=== PATIENT | male | born 1975 | race Two or more races ===

== ENCOUNTER 2020-08-21 02:05 | Inpatient (IN) | payer OTHER ==
[~2020-08-21] VITALS: Ht 175.3 cm; Wt 69.5 kg
--- NOTE | 2020-08-21 02:40 | NUR ---
assumed care of pt. pt here for open wounds to R 2nd 3rd 4th toes. pt states that he has had open wounds to his toes for a few days. middle toe is black and has skin sloughing off of it. foul smelling. pt has some bloody areas to 2nd and 4th toes. no drainage at this time. pt also has discoloration to base of toes. 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 pt has multiple scrapes and scabs to the anterior of both lower legs. pt is calm and cooperative. positioning for comfort. at bedside
[2020-08-21 03:00] LABS: BASOPHILS # (AUTO) 0.03 x10^3/uL (0-0.1); BASOPHILS % (AUTO) 0 % (0-1); EOSINOPHILS % (AUTO) 1 % (1-7); LYMPHOCYTES # (AUTO) 1.22 x10^3/uL (1-3.4); LYMPHOCYTES % (AUTO) 9 % (22-44); MD NO; MEAN CORPUSCULAR HEMOGLOBIN 30.9 pg (27.5-34.5); MEAN CORPUSCULAR HGB CONC 33.3 g/dL (33.2-36.2); MEAN PLATELET VOLUME 7.4 fL (7.4-10.4); MONOCYTES # (AUTO) 0.57 x10^3/uL (0.2-0.8); MONOCYTES % (AUTO) 4 % (2-9); NEUTROPHILS # (AUTO) 11.11 x10^3/uL (1.8-6.8); NEUTROPHILS % (AUTO) 85 % (42-75); PLATELET COUNT 520 x10^3/uL (130-400); RED BLOOD COUNT 3.27 x10^6/uL (4.38-5.82); RED CELL DISTRIBUTION WIDTH 13.1 % (9.4-14.8)
[2020-08-21] MEDS ORDERED: VANCOMYCIN 1,500 MG in SODIUM CHLORIDE 0.9% 250 ML IV ONE (03:00)
[2020-08-21] MEDS ORDERED: LEVOFLOXACIN/PMX 750MG/150ML 150 ML IVPB ONE (03:00)
[2020-08-21] MEDS ORDERED: AMPICILLIN/SULBACTAM 3 GM in SODIUM CHLORIDE 0.9% 100 ML IV ONE (03:00)
[2020-08-21] MEDS ORDERED: ACETAMINOPHEN 325 MG TABLET PO ONE (03:00)
[2020-08-21] MEDS ORDERED: VANCOMYCIN PER PHARMACY MC ONE (03:00)
[2020-08-21] MEDS ORDERED: SODIUM CHLORIDE FLUSH 10ML SYR IVF ONE (03:00)
[2020-08-21] MEDS ORDERED: SODIUM CHLORIDE 0.9% 1,000ML IVBOLUS ONE ×2 (03:00→05:30)
--- NOTE | 2020-08-21 03:00 | NUR ---
wound has been sprayed with wound cleanser. elevated for comfort
[2020-08-21 03:01] LABS: HCT (SEDRATE) 30.6 % (39.2-51.8)
[2020-08-21 03:08] LABS: ALANINE AMINOTRANSFERASE 19 U/L (12-78); ALBUMIN 2.4 g/dL (3.4-5.0); ANION GAP 6 mmol/L (5-15); CALCIUM 9.1 mg/dL (8.5-10.1); CHLORIDE 95 mmol/L (98-107)
[2020-08-21] MEDS ORDERED: ACETAMINOPHEN 325 MG TABLET ONE (03:09)
[2020-08-21] MEDS ORDERED: MORPHINE SULFATE 4 MG/ML, 1ML ONE (03:09)
[2020-08-21 03:15] LABS: ALKALINE PHOSPHATASE 222 U/L (45-117); BILIRUBIN,TOTAL 0.3 mg/dL (0.2-1.0); CREATININE 1.16 mg/dL (0.7-1.3); TOTAL PROTEIN 8.2 g/dL (6.4-8.2)
[2020-08-21] MEDS: MORPHINE SULFATE 4 MG/ML, 1ML IV PRN ×2 (03:15→08:25)
[2020-08-21] MEDS ORDERED: METF500T17 PO (03:46)
[2020-08-21] MEDS ORDERED: ATOR20TA37 PO (03:46)
[2020-08-21] MEDS ORDERED: CLINDAMYCIN PMX 900MG/50ML 50 ML IV ONE (04:00)
--- NOTE | 2020-08-21 04:03 | NUR ---
pt has been medicated and reports some relief of pain. ABX infusing. pt sitting up on gurney in position of comfort. awaiting admit. at bedside
[2020-08-21] MEDS ORDERED: CLINDAMYCIN PMX 900MG/50ML 50 ML ONE (05:09)
--- NOTE | 2020-08-21 05:21 | NUR ---
admit orders recieved. bed assignment recieved. pt updated on POC report called to Yung EUGENE
--- NOTE | 2020-08-21 05:29 | NUR ---
pt has been NPO since admit
[2020-08-21 07:05] VITALS: BP 109/70
[2020-08-21] MEDS ORDERED: ONDANSETRON ODT 4 MG PO PRN (08:30)
[2020-08-21] MEDS ORDERED: VANCOMYCIN PER PHARMACY MC PRN (08:30)
[2020-08-21] MEDS ORDERED: ONDANSETRON 2MG/ML, 2ML IVPush PRN ×2 (08:30→18:00)
[2020-08-21] MEDS ORDERED: morphine SULFATE 10 MG/ML, 1ML IVPush PRN (08:30)
[2020-08-21] MEDS: SODIUM CHLORIDE 0.9% 1,000 ML IV SCH ×2 (08:53→16:16)
[2020-08-21] MEDS: PIPERACILLIN/TAZO/PMX 3.375GM 50 ML IV SCH ×2 (08:53→15:09)
[2020-08-21] MEDS ORDERED: CLINDAMYCIN PMX 900MG/50ML 50 ML IV SCH ×2 (09:00→13:00)
[2020-08-21] MEDS ORDERED: PHARMACOKINETIC CONSULTATION MC ONE (09:00)
[2020-08-21] MEDS ORDERED: PHARMACOKINETIC MONITORING MC PRN (09:00)
[2020-08-21] MEDS ORDERED: VANCOMYCIN 1,800 MG in SODIUM CHLORIDE 0.9% 250 ML IV ONE (10:00)
[2020-08-21] MEDS: INSULIN LISPRO 100 UNITS/ML, PEN SQ-INSULIN SCH ×3 (11:38→22:30)
[2020-08-21 13:25] VITALS: BP 97/63
[2020-08-21 13:28] VITALS: BP 139/76
[2020-08-21] MEDS: VANCOMYCIN 1,500 MG in SODIUM CHLORIDE 0.9% 250 ML IV SCH (15:13)
[2020-08-21] MEDS ORDERED: CHLORHEXIDINE 15 ML UDC ONE (16:52)
[2020-08-21] MEDS ORDERED: CHLORHEXIDINE 15 ML UDC MM ONE (17:00)
[2020-08-21] MEDS ORDERED: MIDAZOLAM 1 MG/ML, 2ML ONE (17:24)
[2020-08-21] MEDS ORDERED: FENTANYL PF 100 MCG/2ML ONE (17:24)
[2020-08-21] MEDS ORDERED: PROPOFOL 10 MG/ML, 20ML ONE (17:29)
[2020-08-21] MEDS ORDERED: HYDROmorphone 1 MG/ML, 1ML INJ IVPush PRN (18:00)
[2020-08-21] MEDS ORDERED: OXYcodone 5 MG/5 ML ORAL.SOL UDC PO PRN (18:00)
[2020-08-21] MEDS ORDERED: PROMETHAZINE 25 MG/ML, 1ML IVPush PRN (18:00)
[2020-08-21] MEDS ORDERED: HYDROcodone/APAP 7.5-325MG/15ML UDC PO PRN ×2 (18:00→19:30)
[2020-08-21] MEDS ORDERED: MEPERIDINE/PF 25MG/0.5ML IVPush PRN (18:00)
[2020-08-21] MEDS ORDERED: FENTANYL PF 100 MCG/2ML IV PRN (18:00)
[2020-08-21 18:34] VITALS: BP 147/83
[2020-08-21 18:40] VITALS: BP 120/70
[2020-08-21] MEDS ORDERED: ONDANSETRON 2MG/ML, 2ML IV PRN (19:30)
[2020-08-21] MEDS: KETOROLAC 30 MG/1 ML IV SCH (20:17)
[2020-08-21] MEDS: HYDROmorphone 2 MG/ML, 1ML IVPush PRN (20:44)
[2020-08-21] MEDS: AMPICILLIN/SULBACTAM 3 GM in SODIUM CHLORIDE 0.9% 100 ML IV SCH (20:44)
[2020-08-21] MEDS: DOCUSATE 100 MG CAPSULE PO SCH (22:32)
[2020-08-21] MEDS: OXYcodone/APAP 5/325MG TABLET PO PRN (23:49)
[2020-08-22 00:27] VITALS: BP 132/55
[2020-08-22] MEDS: AMPICILLIN/SULBACTAM 3 GM in SODIUM CHLORIDE 0.9% 100 ML IV SCH ×4 (02:10→19:34)
[2020-08-22] MEDS: KETOROLAC 30 MG/1 ML IV SCH ×2 (03:36→12:00)
[2020-08-22] MEDS: VANCOMYCIN 1,500 MG in SODIUM CHLORIDE 0.9% 250 ML IV SCH ×2 (03:37→17:44)
[2020-08-22] MEDS ORDERED: VANCOMYCIN 1,800 MG in SODIUM CHLORIDE 0.9% 250 ML IV SCH (04:00)
[2020-08-22 04:11] VITALS: BP 122/68
[2020-08-22 04:32] LABS: MEAN CORPUSCULAR HEMOGLOBIN 31.3 pg (27.5-34.5); MEAN CORPUSCULAR HGB CONC 33.7 g/dL (33.2-36.2); MEAN PLATELET VOLUME 7.3 fL (7.4-10.4); PLATELET COUNT 472 x10^3/uL (130-400); RED BLOOD COUNT 2.94 x10^6/uL (4.38-5.82); RED CELL DISTRIBUTION WIDTH 13.3 % (9.4-14.8)
[2020-08-22 04:41] LABS: ALANINE AMINOTRANSFERASE 14 U/L (12-78); ANION GAP 6 mmol/L (5-15); CALCIUM 8.4 mg/dL (8.5-10.1); CHLORIDE 100 mmol/L (98-107); CREATININE 0.93 mg/dL (0.7-1.3)
[2020-08-22 04:51] LABS: ALKALINE PHOSPHATASE 171 U/L (45-117); BILIRUBIN,TOTAL 0.4 mg/dL (0.2-1.0); TOTAL PROTEIN 7.1 g/dL (6.4-8.2)
[2020-08-22 05:50] LABS: BASOPHILS # (AUTO) 0.01 x10^3/uL (0-0.1); BASOPHILS % (AUTO) 0 % (0-1); EOSINOPHILS # (AUTO) 0.06 x10^3/uL (0-0.4); EOSINOPHILS % (AUTO) 0 % (1-7); LYMPHOCYTES # (AUTO) 1.36 x10^3/uL (1-3.4); LYMPHOCYTES % (AUTO) 9 % (22-44); MD SCAN; MONOCYTES # (AUTO) 0.88 x10^3/uL (0.2-0.8); MONOCYTES % (AUTO) 6 % (2-9); NEUTROPHILS # (AUTO) 13.43 x10^3/uL (1.8-6.8); NEUTROPHILS % (AUTO) 85 % (42-75)
[2020-08-22] MEDS: INSULIN LISPRO 100 UNITS/ML, PEN SQ-INSULIN SCH ×4 (07:00→20:46)
[2020-08-22 09:32] VITALS: BP 136/71
[2020-08-22] MEDS: DOCUSATE 100 MG CAPSULE PO SCH ×2 (10:15→20:45)
[2020-08-22] MEDS: OXYcodone/APAP 5/325MG TABLET PO PRN ×2 (10:28→16:31)
[2020-08-22] MEDS: CLINDAMYCIN PMX 900MG/50ML 50 ML IV SCH ×2 (12:48→20:34)
[2020-08-22] MEDS ORDERED: VANCOMYCIN PER PHARMACY MC PRN (13:00)
[2020-08-22] MEDS ORDERED: PHARMACOKINETIC CONSULTATION MC ONE (13:30)
[2020-08-22] MEDS ORDERED: PHARMACOKINETIC MONITORING MC PRN (13:30)
[2020-08-22 14:00] VITALS: BP 103/65
[2020-08-22] MEDS ORDERED: VANCOMYCIN 1,500 MG in SODIUM CHLORIDE 0.9% 250 ML IV SCH (15:30)
[2020-08-22 19:11] VITALS: BP 104/63
[2020-08-23 01:05] VITALS: BP 127/70
[2020-08-23] MEDS: AMPICILLIN/SULBACTAM 3 GM in SODIUM CHLORIDE 0.9% 100 ML IV SCH ×2 (01:11→08:03)
[2020-08-23] MEDS: OXYcodone/APAP 5/325MG TABLET PO PRN ×4 (01:11→21:32)
[2020-08-23] MEDS: CLINDAMYCIN PMX 900MG/50ML 50 ML IV SCH ×2 (04:13→11:28)
[2020-08-23] MEDS: VANCOMYCIN 1,500 MG in SODIUM CHLORIDE 0.9% 250 ML IV SCH (05:23)
[2020-08-23 05:35] LABS: ANION GAP 8 mmol/L (5-15); CALCIUM 8.8 mg/dL (8.5-10.1); CHLORIDE 102 mmol/L (98-107)
[2020-08-23 05:36] LABS: BASOPHILS # (AUTO) 0.01 x10^3/uL (0-0.1); BASOPHILS % (AUTO) 0 % (0-1); CREATININE 0.84 mg/dL (0.7-1.3); EOSINOPHILS # (AUTO) 0.12 x10^3/uL (0-0.4); EOSINOPHILS % (AUTO) 1 % (1-7); LYMPHOCYTES # (AUTO) 1.26 x10^3/uL (1-3.4); LYMPHOCYTES % (AUTO) 11 % (22-44); MD NO; MEAN CORPUSCULAR HEMOGLOBIN 30.5 pg (27.5-34.5); MEAN CORPUSCULAR HGB CONC 32.7 g/dL (33.2-36.2); MONOCYTES # (AUTO) 0.62 x10^3/uL (0.2-0.8); MONOCYTES % (AUTO) 6 % (2-9); NEUTROPHILS # (AUTO) 9.16 x10^3/uL (1.8-6.8); NEUTROPHILS % (AUTO) 82 % (42-75); PLATELET COUNT 455 x10^3/uL (130-400); RED BLOOD COUNT 2.78 x10^6/uL (4.38-5.82); RED CELL DISTRIBUTION WIDTH 13.3 % (9.4-14.8)
[2020-08-23] MEDS: INSULIN LISPRO 100 UNITS/ML, PEN SQ-INSULIN SCH ×4 (07:00→21:48)
[2020-08-23 08:17] LABS: HCT (SEDRATE) 25.9 % (39.2-51.8)
[2020-08-23 08:19] VITALS: BP 140/74
[2020-08-23] MEDS: DOCUSATE 100 MG CAPSULE PO SCH ×2 (08:22→21:32)
[2020-08-23 08:36] LABS: % IRON SATURATION 12 % (20-55); IRON LEVEL 18 mcg/dL (65-175); TOTAL IRON BINDING CAPACITY 146 mcg/dL (250-450); TRANSFERRIN 108 mg/dL (200-360)
[2020-08-23 08:54] LABS: C-REACTIVE PROTEIN, QUANT > 19.00 mg/dL (0.02-0.49)
[2020-08-23] MEDS: ENOXAPARIN 40 MG/0.4 ML SQ SCH (11:29)
[2020-08-23] MEDS ORDERED: ERTAPENEM 1 GM in SODIUM CHLORIDE 0.9% 50 ML IV SCH (13:00)
[2020-08-23] MEDS: LINEZOLID 600 MG TABLET PO SCH (13:26)
[2020-08-23 13:38] VITALS: BP 139/82
[2020-08-23] MEDS ORDERED: VANCOMYCIN 1,200 MG in SODIUM CHLORIDE 0.9% 250 ML IV SCH (17:00)
[2020-08-23 18:33] VITALS: BP 145/72
[2020-08-24 01:28] VITALS: BP 120/69
[2020-08-24] MEDS: LINEZOLID 600 MG TABLET PO SCH (01:37)
[2020-08-24] MEDS: OXYcodone/APAP 5/325MG TABLET PO PRN ×4 (01:38→20:19)
[2020-08-24 05:17] LABS: BASOPHILS # (AUTO) 0.03 x10^3/uL (0-0.1); BASOPHILS % (AUTO) 0 % (0-1); EOSINOPHILS # (AUTO) 0.16 x10^3/uL (0-0.4); EOSINOPHILS % (AUTO) 2 % (1-7); LYMPHOCYTES # (AUTO) 1.35 x10^3/uL (1-3.4); LYMPHOCYTES % (AUTO) 13 % (22-44); MD NO; MEAN CORPUSCULAR HEMOGLOBIN 31.2 pg (27.5-34.5); MEAN CORPUSCULAR HGB CONC 33.6 g/dL (33.2-36.2); MEAN PLATELET VOLUME 7.4 fL (7.4-10.4); MONOCYTES # (AUTO) 0.74 x10^3/uL (0.2-0.8); MONOCYTES % (AUTO) 7 % (2-9); NEUTROPHILS # (AUTO) 8.32 x10^3/uL (1.8-6.8); NEUTROPHILS % (AUTO) 79 % (42-75); PLATELET COUNT 478 x10^3/uL (130-400); RED BLOOD COUNT 2.74 x10^6/uL (4.38-5.82); RED CELL DISTRIBUTION WIDTH 13.3 % (9.4-14.8)
[2020-08-24] MEDS: INSULIN LISPRO 100 UNITS/ML, PEN SQ-INSULIN SCH ×4 (06:56→20:38)
[2020-08-24 07:16] VITALS: BP 147/87
[2020-08-24] MEDS: DOCUSATE 100 MG CAPSULE PO SCH ×2 (08:20→20:17)
[2020-08-24] MEDS: PIPERACILLIN/TAZO/PMX 3.375GM 50 ML IV SCH ×3 (10:53→23:26)
[2020-08-24] MEDS: DAPTOMYCIN 400 MG in SODIUM CHLORIDE 0.9% 100 ML IVPB SCH (11:33)
[2020-08-24] MEDS: ENOXAPARIN 40 MG/0.4 ML SQ SCH (11:40)
[2020-08-24 12:30] VITALS: BP 156/93
[2020-08-24 19:08] VITALS: BP 116/78
[2020-08-25] MEDS: OXYcodone/APAP 5/325MG TABLET PO PRN ×4 (00:31→20:40)
[2020-08-25 00:46] VITALS: BP 106/47
[2020-08-25 04:27] LABS: BASOPHILS # (AUTO) 0.02 x10^3/uL (0-0.1); BASOPHILS % (AUTO) 0 % (0-1); EOSINOPHILS # (AUTO) 0.25 x10^3/uL (0-0.4); EOSINOPHILS % (AUTO) 2 % (1-7); LYMPHOCYTES # (AUTO) 1.54 x10^3/uL (1-3.4); LYMPHOCYTES % (AUTO) 13 % (22-44); MD NO; MEAN CORPUSCULAR HEMOGLOBIN 30.8 pg (27.5-34.5); MEAN CORPUSCULAR HGB CONC 33.1 g/dL (33.2-36.2); MEAN PLATELET VOLUME 7.1 fL (7.4-10.4); MONOCYTES # (AUTO) 0.68 x10^3/uL (0.2-0.8); MONOCYTES % (AUTO) 6 % (2-9); NEUTROPHILS # (AUTO) 9.03 x10^3/uL (1.8-6.8); NEUTROPHILS % (AUTO) 78 % (42-75); PLATELET COUNT 513 x10^3/uL (130-400); RED BLOOD COUNT 3.12 x10^6/uL (4.38-5.82); RED CELL DISTRIBUTION WIDTH 13.2 % (9.4-14.8)
[2020-08-25 04:35] LABS: ANION GAP 5 mmol/L (5-15); CALCIUM 8.8 mg/dL (8.5-10.1); CHLORIDE 97 mmol/L (98-107); CREATININE 0.99 mg/dL (0.7-1.3)
[2020-08-25] MEDS: PIPERACILLIN/TAZO/PMX 3.375GM 50 ML IV SCH ×3 (06:05→18:15)
[2020-08-25] MEDS: INSULIN LISPRO 100 UNITS/ML, PEN SQ-INSULIN SCH ×4 (06:14→20:41)
[2020-08-25 06:50] VITALS: BP 103/61
[2020-08-25] MEDS: DOCUSATE 100 MG CAPSULE PO SCH ×2 (08:25→20:40)
[2020-08-25] MEDS: DAPTOMYCIN 400 MG in SODIUM CHLORIDE 0.9% 100 ML IVPB SCH (10:43)
[2020-08-25] MEDS ORDERED: GADOTERATE 7.5 MMOL/15 ML SYR ONE (11:59)
[2020-08-25] MEDS: ENOXAPARIN 40 MG/0.4 ML SQ SCH (12:32)
[2020-08-25 13:07] VITALS: BP 129/73
[2020-08-25 20:20] VITALS: BP 117/70
[2020-08-26 00:15] VITALS: BP 91/57
[2020-08-26] MEDS: PIPERACILLIN/TAZO/PMX 3.375GM 50 ML IV SCH ×2 (01:38→06:38)
[2020-08-26 05:21] LABS: BASOPHILS # (AUTO) 0.05 x10^3/uL (0-0.1); BASOPHILS % (AUTO) 0 % (0-1); EOSINOPHILS # (AUTO) 0.21 x10^3/uL (0-0.4); EOSINOPHILS % (AUTO) 2 % (1-7); LYMPHOCYTES # (AUTO) 1.35 x10^3/uL (1-3.4); LYMPHOCYTES % (AUTO) 10 % (22-44); MD NO; MEAN CORPUSCULAR HEMOGLOBIN 30.2 pg (27.5-34.5); MEAN CORPUSCULAR HGB CONC 32.5 g/dL (33.2-36.2); MONOCYTES # (AUTO) 0.62 x10^3/uL (0.2-0.8); MONOCYTES % (AUTO) 5 % (2-9); NEUTROPHILS # (AUTO) 10.75 x10^3/uL (1.8-6.8); NEUTROPHILS % (AUTO) 83 % (42-75); PLATELET COUNT 628 x10^3/uL (130-400); RED BLOOD COUNT 3.38 x10^6/uL (4.38-5.82); RED CELL DISTRIBUTION WIDTH 13.2 % (9.4-14.8)
[2020-08-26 05:23] LABS: ANION GAP 5 mmol/L (5-15); CHLORIDE 96 mmol/L (98-107)
[2020-08-26 05:28] LABS: ALANINE AMINOTRANSFERASE 37 U/L (12-78); ALKALINE PHOSPHATASE 359 U/L (45-117); BILIRUBIN,TOTAL 0.4 mg/dL (0.2-1.0); CALCIUM 9.1 mg/dL (8.5-10.1); CREATININE 0.92 mg/dL (0.7-1.3); TOTAL PROTEIN 8.1 g/dL (6.4-8.2)
[2020-08-26] MEDS: INSULIN LISPRO 100 UNITS/ML, PEN SQ-INSULIN SCH ×4 (06:09→20:48)
[2020-08-26 06:58] VITALS: BP 113/69
[2020-08-26] MEDS: OXYcodone/APAP 5/325MG TABLET PO PRN ×2 (09:37→20:25)
[2020-08-26] MEDS: GABAPENTIN 300 MG CAPSULE PO SCH ×3 (09:37→20:24)
[2020-08-26] MEDS ORDERED: BISACODYL 10 MG SUPP PR SCH (10:00)
[2020-08-26] MEDS: HYDROmorphone 2 MG/ML, 1ML IVPush PRN (10:19)
[2020-08-26] MEDS ORDERED: VANCOMYCIN PER PHARMACY MC PRN (11:00)
[2020-08-26] MEDS ORDERED: PHARMACOKINETIC MONITORING MC PRN (11:00)
[2020-08-26] MEDS ORDERED: PHARMACOKINETIC CONSULTATION MC ONE (11:00)
[2020-08-26] MEDS ORDERED: VANCOMYCIN 1,600 MG in SODIUM CHLORIDE 0.9% 250 ML IV ONE (11:30)
[2020-08-26] MEDS: CEFEPIME 2 GM in DEXTROSE 5% 100 ML IV SCH ×2 (12:09→20:24)
[2020-08-26 12:19] VITALS: BP 90/56
[2020-08-26] MEDS: ENOXAPARIN 40 MG/0.4 ML SQ SCH (13:36)
[2020-08-26] MEDS: FERROUS SULFATE 325 MG TABLET PO SCH (16:14)
[2020-08-26] MEDS: SODIUM CHLORIDE 0.9% 1,000 ML IV SCH (16:21)
[2020-08-26 19:12] VITALS: BP 111/65
[2020-08-26] MEDS: SENNA/DOCUSATE TABLET PO SCH (20:24)
[2020-08-26] MEDS: VANCOMYCIN 1,200 MG in SODIUM CHLORIDE 0.9% 250 ML IV SCH (23:36)
[2020-08-27 00:41] VITALS: BP 100/57
[2020-08-27] MEDS: SODIUM CHLORIDE 0.9% 1,000 ML IV SCH ×2 (03:23→23:47)
[2020-08-27] MEDS: CEFEPIME 2 GM in DEXTROSE 5% 100 ML IV SCH ×3 (03:59→22:21)
[2020-08-27] MEDS: HYDROmorphone 2 MG/ML, 1ML IVPush PRN ×3 (04:20→15:11)
[2020-08-27 06:20] LABS: ANION GAP 5 mmol/L (5-15); CHLORIDE 100 mmol/L (98-107)
[2020-08-27 06:28] LABS: CREATININE 0.85 mg/dL (0.7-1.3)
[2020-08-27 06:57] VITALS: BP 103/69
[2020-08-27] MEDS: INSULIN LISPRO 100 UNITS/ML, PEN SQ-INSULIN SCH ×4 (07:38→20:09)
[2020-08-27] MEDS: GABAPENTIN 300 MG CAPSULE PO SCH ×3 (07:51→20:10)
[2020-08-27] MEDS ORDERED: BISACODYL 10 MG SUPP PR PRN (08:00)
[2020-08-27] MEDS ORDERED: ACETAMINOPHEN 325 MG TABLET PO PRN ×2 (08:00→20:30)
[2020-08-27 08:28] LABS: BASOPHILS % (AUTO) 0 % (0-1); EOSINOPHILS % (AUTO) 2 % (1-7); LYMPHOCYTES % (AUTO) 13 % (22-44); MEAN CORPUSCULAR HEMOGLOBIN 30.6 pg (27.5-34.5); MEAN CORPUSCULAR HGB CONC 33.7 g/dL (33.2-36.2); MEAN PLATELET VOLUME 6.9 fL (7.4-10.4); MONOCYTES % (AUTO) 6 % (2-9); NEUTROPHILS % (AUTO) 79 % (42-75); PLATELET COUNT 604 x10^3/uL (130-400); RED BLOOD COUNT 3.07 x10^6/uL (4.38-5.82); RED CELL DISTRIBUTION WIDTH 13.1 % (9.4-14.8)
[2020-08-27 08:53] LABS: MD NO
[2020-08-27] MEDS: VANCOMYCIN 1,200 MG in SODIUM CHLORIDE 0.9% 250 ML IV SCH (11:36)
[2020-08-27] MEDS: ENOXAPARIN 40 MG/0.4 ML SQ SCH (11:37)
[2020-08-27 12:31] VITALS: BP 118/70
[2020-08-27 18:28] VITALS: BP 103/60
[2020-08-27] MEDS: SENNA/DOCUSATE TABLET PO SCH (20:10)
[2020-08-27] MEDS ORDERED: ONDANSETRON 2MG/ML, 2ML ONE (20:25)
[2020-08-27] MEDS ORDERED: PROPOFOL 10 MG/ML, 20ML ONE (20:25)
[2020-08-27] MEDS ORDERED: ONDANSETRON 2MG/ML, 2ML IVPush PRN (20:30)
[2020-08-27] MEDS ORDERED: OXYcodone 5 MG/5 ML ORAL.SOL UDC PO PRN (20:30)
[2020-08-27] MEDS ORDERED: KETOROLAC 30 MG/1 ML IV PRN (20:30)
[2020-08-27] MEDS ORDERED: MEPERIDINE/PF 25MG/0.5ML IVPush PRN (20:30)
[2020-08-27] MEDS ORDERED: EPHEDRINE 50 MG/ML, 1ML IVPush PRN (20:30)
[2020-08-27] MEDS ORDERED: HYDROmorphone 1 MG/ML, 1ML INJ IVPush PRN (20:30)
[2020-08-27] MEDS ORDERED: LORazepam 2 MG/ML, 1ML IVPush PRN (20:30)
[2020-08-27] MEDS ORDERED: METHOCARBAMOL 1,000 MG in DEXTROSE 5% 100 ML IV PRN (20:30)
[2020-08-27] MEDS ORDERED: hydrALAzine 20 MG/ML, 1ML IV PRN (20:30)
[2020-08-27] MEDS ORDERED: FENTANYL PF 100 MCG/2ML IV PRN (20:30)
[2020-08-27] MEDS ORDERED: PROMETHAZINE 12.5 MG SUPP PR PRN (20:30)
[2020-08-27] MEDS ORDERED: LABETALOL 5MG/ML, 20ML IV PRN (20:30)
[2020-08-27] MEDS ORDERED: FENTANYL PF 100 MCG/2ML ONE ×2 (20:37→21:13)
[2020-08-27] MEDS ORDERED: DAKIN'S SOLUTION 1/4 STRENGTH 1,000 ML IRRIG SOLN EXT ONE (21:00)
[2020-08-27] MEDS ORDERED: OXYcodone 5 MG/5 ML ORAL.SOL UDC ONE (21:13)
[2020-08-27] MEDS: DAPTOMYCIN 400 MG in SODIUM CHLORIDE 0.9% 100 ML IVPB SCH (23:44)
[2020-08-28] VITALS: BP 117/73
[2020-08-28 03:45] VITALS: BP 133/71
[2020-08-28] MEDS: OXYcodone/APAP 5/325MG TABLET PO PRN ×4 (03:53→22:13)
[2020-08-28 04:39] LABS: BASOPHILS % (AUTO) 1 % (0-1); EOSINOPHILS % (AUTO) 1 % (1-7); LYMPHOCYTES % (AUTO) 9 % (22-44); MEAN CORPUSCULAR HEMOGLOBIN 30.2 pg (27.5-34.5); MEAN CORPUSCULAR HGB CONC 33.6 g/dL (33.2-36.2); MEAN PLATELET VOLUME 6.5 fL (7.4-10.4); MONOCYTES % (AUTO) 5 % (2-9); NEUTROPHILS % (AUTO) 84 % (42-75); PLATELET COUNT 637 x10^3/uL (130-400); RED BLOOD COUNT 3.07 x10^6/uL (4.38-5.82); RED CELL DISTRIBUTION WIDTH 13.1 % (9.4-14.8)
[2020-08-28 05:48] LABS: MD SCAN
[2020-08-28] MEDS: SODIUM CHLORIDE 0.9% 1,000 ML IV SCH (06:02)
[2020-08-28] MEDS: CEFEPIME 2 GM in DEXTROSE 5% 100 ML IV SCH ×3 (06:16→22:13)
[2020-08-28 07:00] VITALS: BP 105/64
[2020-08-28] MEDS: INSULIN LISPRO 100 UNITS/ML, PEN SQ-INSULIN SCH ×4 (07:16→22:27)
[2020-08-28] MEDS: GABAPENTIN 300 MG CAPSULE PO SCH ×3 (08:21→22:13)
[2020-08-28] MEDS: HYDROmorphone 2 MG/ML, 1ML IVPush PRN ×2 (12:36→23:53)
[2020-08-28] MEDS: ENOXAPARIN 40 MG/0.4 ML SQ SCH (14:08)
[2020-08-28 14:40] VITALS: BP 94/62
[2020-08-28] MEDS: FERROUS SULFATE 325 MG TABLET PO SCH (16:38)
[2020-08-28 18:54] VITALS: BP 98/64
[2020-08-28] MEDS: SENNA/DOCUSATE TABLET PO SCH (22:13)
[2020-08-28] MEDS: DAPTOMYCIN 400 MG in SODIUM CHLORIDE 0.9% 100 ML IVPB SCH (23:53)
[2020-08-29 01:43] VITALS: BP 96/63
[2020-08-29] MEDS: OXYcodone/APAP 5/325MG TABLET PO PRN ×4 (05:15→23:50)
[2020-08-29 05:28] LABS: BASOPHILS % (AUTO) 0 % (0-1); EOSINOPHILS % (AUTO) 3 % (1-7); LYMPHOCYTES % (AUTO) 17 % (22-44); MEAN CORPUSCULAR HEMOGLOBIN 30.7 pg (27.5-34.5); MEAN CORPUSCULAR HGB CONC 33.8 g/dL (33.2-36.2); MEAN PLATELET VOLUME 6.8 fL (7.4-10.4); MONOCYTES % (AUTO) 9 % (2-9); NEUTROPHILS % (AUTO) 71 % (42-75); PLATELET COUNT 609 x10^3/uL (130-400); RED BLOOD COUNT 2.81 x10^6/uL (4.38-5.82); RED CELL DISTRIBUTION WIDTH 12.9 % (9.4-14.8)
[2020-08-29 05:47] LABS: MD NO
[2020-08-29] MEDS: CEFEPIME 2 GM in DEXTROSE 5% 100 ML IV SCH ×3 (06:17→22:25)
[2020-08-29] MEDS: INSULIN LISPRO 100 UNITS/ML, PEN SQ-INSULIN SCH ×4 (07:44→22:36)
[2020-08-29 08:00] VITALS: BP 122/77
[2020-08-29] MEDS: SODIUM CHLORIDE 0.9% 1,000 ML IV SCH ×2 (08:33→15:55)
[2020-08-29] MEDS: GABAPENTIN 300 MG CAPSULE PO SCH ×3 (08:33→20:37)
[2020-08-29] MEDS: HYDROmorphone 2 MG/ML, 1ML IVPush PRN (10:18)
[2020-08-29 13:36] VITALS: BP 125/73
[2020-08-29] MEDS: ENOXAPARIN 40 MG/0.4 ML SQ SCH (13:49)
[2020-08-29 18:39] VITALS: BP 126/79
[2020-08-29] MEDS: SENNA/DOCUSATE TABLET PO SCH (20:37)
[2020-08-29] MEDS: DAPTOMYCIN 400 MG in SODIUM CHLORIDE 0.9% 100 ML IVPB SCH (23:50)
[2020-08-30 01:37] VITALS: BP 124/75
[2020-08-30 05:48] LABS: ANION GAP 3 mmol/L (5-15); CALCIUM 8.8 mg/dL (8.5-10.1); CHLORIDE 101 mmol/L (98-107)
[2020-08-30 05:57] LABS: BASOPHILS % (AUTO) 1 % (0-1); CREATININE 1.03 mg/dL (0.7-1.3); EOSINOPHILS % (AUTO) 3 % (1-7); LYMPHOCYTES % (AUTO) 18 % (22-44); MEAN CORPUSCULAR HEMOGLOBIN 31.2 pg (27.5-34.5); MEAN CORPUSCULAR HGB CONC 34.3 g/dL (33.2-36.2); MONOCYTES % (AUTO) 9 % (2-9); NEUTROPHILS % (AUTO) 70 % (42-75); PLATELET COUNT 635 x10^3/uL (130-400); RED BLOOD COUNT 2.79 x10^6/uL (4.38-5.82); RED CELL DISTRIBUTION WIDTH 13.4 % (9.4-14.8)
[2020-08-30] MEDS: CEFEPIME 2 GM in DEXTROSE 5% 100 ML IV SCH ×4 (06:02→21:57)
[2020-08-30] MEDS: OXYcodone/APAP 5/325MG TABLET PO PRN ×3 (06:02→19:40)
[2020-08-30 06:29] LABS: MD SCAN
[2020-08-30] MEDS: INSULIN LISPRO 100 UNITS/ML, PEN SQ-INSULIN SCH ×4 (07:43→21:02)
[2020-08-30 07:52] VITALS: BP 102/70
[2020-08-30] MEDS: GABAPENTIN 300 MG CAPSULE PO SCH ×3 (08:49→21:00)
[2020-08-30] MEDS: SODIUM CHLORIDE 0.9% 1,000 ML IV SCH (08:52)
[2020-08-30 13:17] VITALS: BP 105/68
[2020-08-30] MEDS: ENOXAPARIN 40 MG/0.4 ML SQ SCH (13:44)
[2020-08-30] MEDS: FERROUS SULFATE 325 MG TABLET PO SCH (16:10)
[2020-08-30] MEDS: metFORMIN 500 MG TABLET PO SCH (16:15)
[2020-08-30 19:38] VITALS: BP 142/44
[2020-08-30] MEDS: SENNA/DOCUSATE TABLET PO SCH (21:00)
[2020-08-30] MEDS: DAPTOMYCIN 400 MG in SODIUM CHLORIDE 0.9% 100 ML IVPB SCH (23:49)
[2020-08-31 00:08] VITALS: BP 111/66
[2020-08-31] MEDS: HYDROmorphone 2 MG/ML, 1ML IVPush PRN ×3 (02:12→21:07)
[2020-08-31 05:43] LABS: BASOPHILS % (AUTO) 0 % (0-1); EOSINOPHILS % (AUTO) 3 % (1-7); LYMPHOCYTES % (AUTO) 14 % (22-44); MEAN CORPUSCULAR HEMOGLOBIN 30.6 pg (27.5-34.5); MEAN CORPUSCULAR HGB CONC 34.3 g/dL (33.2-36.2); MEAN PLATELET VOLUME 6.9 fL (7.4-10.4); MONOCYTES % (AUTO) 6 % (2-9); NEUTROPHILS % (AUTO) 77 % (42-75); PLATELET COUNT 691 x10^3/uL (130-400); RED BLOOD COUNT 2.94 x10^6/uL (4.38-5.82); RED CELL DISTRIBUTION WIDTH 13.4 % (9.4-14.8)
[2020-08-31] MEDS: CEFEPIME 2 GM in DEXTROSE 5% 100 ML IV SCH ×3 (05:46→22:00)
[2020-08-31] MEDS ORDERED: CHLORHEXIDINE 15 ML UDC MM STA (06:25)
[2020-08-31 06:27] LABS: MD NO
[2020-08-31] MEDS ORDERED: FENTANYL PF 100 MCG/2ML ONE (06:57)
[2020-08-31] MEDS ORDERED: LIDOCAINE-MPF 2% ,5ML ONE (06:57)
[2020-08-31] MEDS ORDERED: OXYcodone 5 MG/5 ML ORAL.SOL UDC PO PRN (07:00)
[2020-08-31] MEDS ORDERED: HALOPERIDOL 5 MG/ML IV PRN (07:00)
[2020-08-31] MEDS ORDERED: FENTANYL PF 100 MCG/2ML IV PRN (07:00)
[2020-08-31] MEDS ORDERED: hydrALAzine 20 MG/ML, 1ML IV PRN (07:00)
[2020-08-31] MEDS ORDERED: HYDROmorphone 1 MG/ML, 1ML INJ IVPush PRN (07:00)
[2020-08-31] MEDS ORDERED: PROMETHAZINE 25 MG/ML, 1ML IVPush PRN (07:00)
[2020-08-31] MEDS ORDERED: LABETALOL 5MG/ML, 20ML IV PRN (07:00)
[2020-08-31] MEDS ORDERED: DIPHENHYDRAMINE 50 MG/ML, 1ML IVPush PRN (07:00)
[2020-08-31] MEDS ORDERED: MEPERIDINE/PF 25MG/0.5ML IVPush PRN (07:00)
[2020-08-31] MEDS ORDERED: PROPOFOL 10 MG/ML, 20ML ONE (07:18)
[2020-08-31] MEDS ORDERED: CEFAZOLIN 1,000 MG ONE (07:18)
[2020-08-31] MEDS ORDERED: DEXAMETHASONE 4 MG/ML, 1ML ONE (07:18)
[2020-08-31] MEDS ORDERED: ONDANSETRON 2MG/ML, 2ML ONE (07:18)
[2020-08-31] MEDS ORDERED: OXYcodone 5 MG/5 ML ORAL.SOL UDC ONE (07:43)
[2020-08-31] MEDS: metFORMIN 500 MG TABLET PO SCH ×2 (08:00→16:48)
[2020-08-31] MEDS: GABAPENTIN 300 MG CAPSULE PO SCH ×3 (08:36→20:13)
[2020-08-31] MEDS: INSULIN LISPRO 100 UNITS/ML, PEN SQ-INSULIN SCH ×4 (08:36→20:15)
[2020-08-31] MEDS: SODIUM CHLORIDE 0.9% 1,000 ML IV SCH (08:37)
[2020-08-31] MEDS: OXYcodone/APAP 5/325MG TABLET PO PRN ×3 (10:53→23:33)
[2020-08-31 13:10] VITALS: BP 97/57
[2020-08-31] MEDS: ENOXAPARIN 40 MG/0.4 ML SQ SCH (14:00)
[2020-08-31 18:43] VITALS: BP 95/54
[2020-08-31] MEDS: SENNA/DOCUSATE TABLET PO SCH (20:13)
[2020-08-31] MEDS: DAPTOMYCIN 400 MG in SODIUM CHLORIDE 0.9% 100 ML IVPB SCH (23:33)
[2020-09-01 00:53] VITALS: BP 133/74
[2020-09-01] MEDS: SODIUM CHLORIDE 0.9% 1,000 ML IV SCH ×2 (01:08→20:41)
[2020-09-01 04:37] LABS: BASOPHILS % (AUTO) 1 % (0-1); EOSINOPHILS % (AUTO) 3 % (1-7); LYMPHOCYTES % (AUTO) 14 % (22-44); MEAN CORPUSCULAR HEMOGLOBIN 29.6 pg (27.5-34.5); MEAN CORPUSCULAR HGB CONC 33.1 g/dL (33.2-36.2); MEAN PLATELET VOLUME 6.5 fL (7.4-10.4); MONOCYTES % (AUTO) 6 % (2-9); NEUTROPHILS % (AUTO) 77 % (42-75); PLATELET COUNT 676 x10^3/uL (130-400); RED BLOOD COUNT 2.87 x10^6/uL (4.38-5.82); RED CELL DISTRIBUTION WIDTH 13.2 % (9.4-14.8)
[2020-09-01 04:48] LABS: MD NO
[2020-09-01 04:53] VITALS: BP 101/63
[2020-09-01] MEDS: CEFEPIME 2 GM in DEXTROSE 5% 100 ML IV SCH ×3 (05:33→22:08)
[2020-09-01] MEDS: OXYcodone/APAP 5/325MG TABLET PO PRN ×3 (05:33→21:01)
[2020-09-01] MEDS: HYDROmorphone 2 MG/ML, 1ML IVPush PRN ×2 (06:32→16:28)
[2020-09-01] MEDS: INSULIN LISPRO 100 UNITS/ML, PEN SQ-INSULIN SCH ×4 (06:41→21:02)
[2020-09-01 06:43] VITALS: BP 104/61
[2020-09-01] MEDS: GABAPENTIN 300 MG CAPSULE PO SCH ×3 (08:04→21:01)
[2020-09-01] MEDS: metFORMIN 500 MG TABLET PO SCH ×2 (08:04→16:28)
[2020-09-01 12:12] VITALS: BP 114/70
[2020-09-01] MEDS: ENOXAPARIN 40 MG/0.4 ML SQ SCH (13:34)
[2020-09-01] MEDS: FERROUS SULFATE 325 MG TABLET PO SCH (16:29)
[2020-09-01 18:30] VITALS: BP 142/79
[2020-09-01] MEDS: CARVEDILOL 3.125 MG TABLET PO SCH (21:00)
[2020-09-01] MEDS: SENNA/DOCUSATE TABLET PO SCH (21:01)
[2020-09-01] MEDS: DAPTOMYCIN 400 MG in SODIUM CHLORIDE 0.9% 100 ML IVPB SCH (23:45)
[2020-09-02 01:24] VITALS: BP 128/83
[2020-09-02] MEDS: OXYcodone/APAP 5/325MG TABLET PO PRN (04:38)
[2020-09-02 05:05] LABS: ANION GAP 4 mmol/L (5-15); CHLORIDE 107 mmol/L (98-107)
[2020-09-02 05:08] LABS: HCT (SEDRATE) 24.6 % (39.2-51.8)
[2020-09-02 05:12] LABS: CREATININE 0.73 mg/dL (0.7-1.3)
[2020-09-02 05:17] LABS: BASOPHILS % (AUTO) 1 % (0-1); EOSINOPHILS % (AUTO) 3 % (1-7); LYMPHOCYTES % (AUTO) 15 % (22-44); MEAN CORPUSCULAR HEMOGLOBIN 30.1 pg (27.5-34.5); MEAN CORPUSCULAR HGB CONC 33.2 g/dL (33.2-36.2); MEAN PLATELET VOLUME 6.8 fL (7.4-10.4); MONOCYTES % (AUTO) 6 % (2-9); NEUTROPHILS % (AUTO) 76 % (42-75); PLATELET COUNT 653 x10^3/uL (130-400); RED BLOOD COUNT 2.86 x10^6/uL (4.38-5.82); RED CELL DISTRIBUTION WIDTH 13.5 % (9.4-14.8)
[2020-09-02 05:35] LABS: MD NO
[2020-09-02] MEDS: CEFEPIME 2 GM in DEXTROSE 5% 100 ML IV SCH ×2 (06:10→16:03)
[2020-09-02 06:36] LABS: SEDIMENTATION RATE > 120 mm/hr (0-10)
[2020-09-02 06:43] LABS: MICROSCOPIC AUTO
[2020-09-02] MEDS: INSULIN LISPRO 100 UNITS/ML, PEN SQ-INSULIN SCH ×4 (07:00→21:00)
[2020-09-02] MEDS ORDERED: ONDANSETRON 2MG/ML, 2ML ONE (07:48)
[2020-09-02] MEDS: ONDANSETRON 2MG/ML, 2ML IVPush PRN ×3 (07:51→19:40)
[2020-09-02 07:59] VITALS: BP 114/71
[2020-09-02] MEDS: metFORMIN 500 MG TABLET PO SCH ×2 (10:05→16:02)
[2020-09-02] MEDS: GABAPENTIN 300 MG CAPSULE PO SCH ×3 (10:05→21:58)
[2020-09-02 13:30] VITALS: BP 108/76
[2020-09-02] MEDS: SODIUM CHLORIDE 0.9% 1,000 ML IV SCH (13:38)
[2020-09-02 13:41] VITALS: BP 102/76
[2020-09-02] MEDS: ENOXAPARIN 40 MG/0.4 ML SQ SCH (14:00)
[2020-09-02 19:54] VITALS: BP 117/68
[2020-09-02] MEDS: CARVEDILOL 3.125 MG TABLET PO SCH (21:58)
[2020-09-02] MEDS: SENNA/DOCUSATE TABLET PO SCH (21:58)
[2020-09-02] MEDS ORDERED: PROMETHAZINE 25 MG/ML, 1ML IM ONE (22:30)
[2020-09-02] MEDS: DAPTOMYCIN 400 MG in SODIUM CHLORIDE 0.9% 100 ML IVPB SCH (23:43)
[2020-09-03] MEDS: CEFEPIME 2 GM in DEXTROSE 5% 100 ML IV SCH ×3 (00:39→16:49)
[2020-09-03 01:38] VITALS: BP 115/76
[2020-09-03] MEDS: SODIUM CHLORIDE 0.9% 1,000 ML IV SCH (06:14)
[2020-09-03 06:30] VITALS: BP 130/77
[2020-09-03] MEDS: INSULIN LISPRO 100 UNITS/ML, PEN SQ-INSULIN SCH ×4 (07:00→21:00)
[2020-09-03] MEDS: GABAPENTIN 300 MG CAPSULE PO SCH ×3 (07:56→20:55)
[2020-09-03] MEDS: metFORMIN 500 MG TABLET PO SCH ×2 (07:56→16:50)
[2020-09-03 13:21] VITALS: BP 92/56
[2020-09-03] MEDS: FERROUS SULFATE 325 MG TABLET PO SCH (14:44)
[2020-09-03] MEDS: ENOXAPARIN 40 MG/0.4 ML SQ SCH (16:00)
[2020-09-03] MEDS: ONDANSETRON 2MG/ML, 2ML IVPush PRN ×2 (16:53→20:54)
[2020-09-03 19:43] VITALS: BP 137/76
[2020-09-03] MEDS: SENNA/DOCUSATE TABLET PO SCH (20:55)
[2020-09-03] MEDS: CARVEDILOL 3.125 MG TABLET PO SCH (20:55)
[2020-09-04 01:03] VITALS: BP 108/76
[2020-09-04] MEDS: DAPTOMYCIN 400 MG in SODIUM CHLORIDE 0.9% 100 ML IVPB SCH (01:28)
[2020-09-04] MEDS: SODIUM CHLORIDE 0.9% 1,000 ML IV SCH ×2 (01:29→15:40)
[2020-09-04] MEDS: CEFEPIME 2 GM in DEXTROSE 5% 100 ML IV SCH ×3 (02:00→15:40)
[2020-09-04] MEDS: INSULIN LISPRO 100 UNITS/ML, PEN SQ-INSULIN SCH ×4 (07:00→20:43)
[2020-09-04 07:15] VITALS: BP 100/71
[2020-09-04] MEDS: ONDANSETRON 2MG/ML, 2ML IVPush PRN ×2 (07:51→22:48)
[2020-09-04] MEDS: metFORMIN 500 MG TABLET PO SCH ×2 (09:43→15:40)
[2020-09-04] MEDS: GABAPENTIN 300 MG CAPSULE PO SCH ×3 (09:43→20:43)
[2020-09-04 14:59] VITALS: BP 99/62
[2020-09-04] MEDS: ENOXAPARIN 40 MG/0.4 ML SQ SCH (15:40)
[2020-09-04] MEDS: SENNA/DOCUSATE TABLET PO SCH (20:43)
[2020-09-04] MEDS: CARVEDILOL 3.125 MG TABLET PO SCH (20:43)
[2020-09-04 20:45] VITALS: BP 114/59
[2020-09-05] MEDS: CEFEPIME 2 GM in DEXTROSE 5% 100 ML IV SCH ×3 (00:02→18:11)
[2020-09-05 01:10] VITALS: BP 122/69
[2020-09-05] MEDS: DAPTOMYCIN 400 MG in SODIUM CHLORIDE 0.9% 100 ML IVPB SCH (01:26)
[2020-09-05] MEDS: INSULIN LISPRO 100 UNITS/ML, PEN SQ-INSULIN SCH ×4 (07:00→21:47)
[2020-09-05 07:04] VITALS: BP 117/79
[2020-09-05] MEDS: ONDANSETRON 2MG/ML, 2ML IVPush PRN (10:19)
[2020-09-05] MEDS: GABAPENTIN 300 MG CAPSULE PO SCH ×3 (10:20→21:43)
[2020-09-05] MEDS: SODIUM CHLORIDE 0.9% 1,000 ML IV SCH (10:20)
[2020-09-05] MEDS: metFORMIN 500 MG TABLET PO SCH ×2 (10:20→17:50)
[2020-09-05] MEDS: PROMETHAZINE 25MG TABLET PO PRN (13:10)
[2020-09-05] MEDS: ENOXAPARIN 40 MG/0.4 ML SQ SCH (16:00)
[2020-09-05] MEDS: FERROUS SULFATE 325 MG TABLET PO SCH (17:50)
[2020-09-05 17:54] VITALS: BP 102/70
[2020-09-05 18:53] VITALS: BP 103/64
[2020-09-05] MEDS: SENNA/DOCUSATE TABLET PO SCH (21:43)
[2020-09-05] MEDS: CARVEDILOL 3.125 MG TABLET PO SCH (21:44)
[2020-09-06] MEDS: CEFEPIME 2 GM in DEXTROSE 5% 100 ML IV SCH ×3 (00:17→17:46)
[2020-09-06] MEDS: DAPTOMYCIN 400 MG in SODIUM CHLORIDE 0.9% 100 ML IVPB SCH (01:28)
[2020-09-06 03:12] VITALS: BP 111/71
[2020-09-06 05:31] LABS: BASOPHILS % (AUTO) 1 % (0-1); EOSINOPHILS % (AUTO) 4 % (1-7); LYMPHOCYTES % (AUTO) 22 % (22-44); MEAN CORPUSCULAR HEMOGLOBIN 30.2 pg (27.5-34.5); MEAN PLATELET VOLUME 6.7 fL (7.4-10.4); MONOCYTES % (AUTO) 6 % (2-9); NEUTROPHILS % (AUTO) 67 % (42-75); PLATELET COUNT 541 x10^3/uL (130-400); RED BLOOD COUNT 2.95 x10^6/uL (4.38-5.82); RED CELL DISTRIBUTION WIDTH 13.2 % (9.4-14.8)
[2020-09-06 05:32] LABS: HCT (SEDRATE) 25.8 % (39.2-51.8); MD NO
[2020-09-06 05:44] LABS: ALANINE AMINOTRANSFERASE 27 U/L (12-78); ALBUMIN 2.1 g/dL (3.4-5.0); ANION GAP 3 mmol/L (5-15); CALCIUM 9.2 mg/dL (8.5-10.1); CHLORIDE 102 mmol/L (98-107); CREATININE 0.74 mg/dL (0.7-1.3)
[2020-09-06 05:50] LABS: ALKALINE PHOSPHATASE 146 U/L (45-117); BILIRUBIN,TOTAL 0.3 mg/dL (0.2-1.0); C-REACTIVE PROTEIN, QUANT 1.82 mg/dL (0.02-0.49); TOTAL PROTEIN 7.6 g/dL (6.4-8.2)
[2020-09-06] MEDS: INSULIN LISPRO 100 UNITS/ML, PEN SQ-INSULIN SCH ×4 (07:00→20:24)
[2020-09-06 07:50] VITALS: BP 104/61
[2020-09-06] MEDS: metFORMIN 500 MG TABLET PO SCH ×2 (09:18→17:46)
[2020-09-06] MEDS: GABAPENTIN 300 MG CAPSULE PO SCH ×3 (09:18→20:11)
[2020-09-06] MEDS: ONDANSETRON 2MG/ML, 2ML IVPush PRN (09:19)
[2020-09-06 13:40] VITALS: BP 98/58
[2020-09-06] MEDS: ENOXAPARIN 40 MG/0.4 ML SQ SCH (16:00)
[2020-09-06 18:57] VITALS: BP 115/67
[2020-09-06] MEDS: CARVEDILOL 3.125 MG TABLET PO SCH (20:11)
[2020-09-06] MEDS: SENNA/DOCUSATE TABLET PO SCH (20:11)
[2020-09-07] MEDS: CEFEPIME 2 GM in DEXTROSE 5% 100 ML IV SCH ×3 (00:12→16:39)
[2020-09-07 00:17] VITALS: BP 111/73
[2020-09-07 00:35] VITALS: BP 105/66
[2020-09-07] MEDS: DAPTOMYCIN 400 MG in SODIUM CHLORIDE 0.9% 100 ML IVPB SCH (01:04)
[2020-09-07 06:30] VITALS: BP 103/66
[2020-09-07] MEDS: GABAPENTIN 300 MG CAPSULE PO SCH ×3 (08:05→22:30)
[2020-09-07] MEDS: metFORMIN 500 MG TABLET PO SCH ×2 (08:05→15:55)
[2020-09-07] MEDS: INSULIN LISPRO 100 UNITS/ML, PEN SQ-INSULIN SCH ×4 (08:06→21:00)
[2020-09-07 12:29] VITALS: BP 111/66
[2020-09-07] MEDS: ENOXAPARIN 40 MG/0.4 ML SQ SCH (15:55)
[2020-09-07] MEDS: FERROUS SULFATE 325 MG TABLET PO SCH (15:55)
[2020-09-07 19:04] VITALS: BP 94/60
[2020-09-07] MEDS: SENNA/DOCUSATE TABLET PO SCH (22:29)
[2020-09-07] MEDS: CARVEDILOL 3.125 MG TABLET PO SCH (22:30)
[2020-09-07 22:32] VITALS: BP 111/69
[2020-09-08] MEDS: CEFEPIME 2 GM in DEXTROSE 5% 100 ML IV SCH ×3 (00:31→16:07)
[2020-09-08 00:32] VITALS: BP 106/75
[2020-09-08] MEDS: DAPTOMYCIN 400 MG in SODIUM CHLORIDE 0.9% 100 ML IVPB SCH (01:26)
[2020-09-08] MEDS: ONDANSETRON 2MG/ML, 2ML IVPush PRN ×2 (06:36→20:51)
[2020-09-08] MEDS: INSULIN LISPRO 100 UNITS/ML, PEN SQ-INSULIN SCH ×4 (06:38→20:58)
[2020-09-08 07:28] VITALS: BP 113/73
[2020-09-08] MEDS: GABAPENTIN 300 MG CAPSULE PO SCH ×3 (08:19→20:50)
[2020-09-08] MEDS: metFORMIN 500 MG TABLET PO SCH ×2 (08:19→16:07)
[2020-09-08] MEDS ORDERED: FLU VACCINE PER PHARMACY IM ONE (12:00)
[2020-09-08 12:52] VITALS: BP 114/79
[2020-09-08] MEDS: ENOXAPARIN 40 MG/0.4 ML SQ SCH (16:00)
[2020-09-08 18:38] VITALS: BP 123/75
[2020-09-08] MEDS: CARVEDILOL 3.125 MG TABLET PO SCH (20:50)
[2020-09-08] MEDS: SENNA/DOCUSATE TABLET PO SCH (20:50)
[2020-09-09 00:19] VITALS: BP 96/66
[2020-09-09] MEDS: CEFEPIME 2 GM in DEXTROSE 5% 100 ML IV SCH ×3 (00:50→16:31)
[2020-09-09] MEDS: DAPTOMYCIN 400 MG in SODIUM CHLORIDE 0.9% 100 ML IVPB SCH (02:08)
[2020-09-09] MEDS: INSULIN LISPRO 100 UNITS/ML, PEN SQ-INSULIN SCH ×4 (07:00→20:51)
[2020-09-09 07:40] VITALS: BP 100/62
[2020-09-09] MEDS: metFORMIN 500 MG TABLET PO SCH ×2 (10:00→16:30)
[2020-09-09] MEDS: GABAPENTIN 300 MG CAPSULE PO SCH ×3 (10:00→20:47)
[2020-09-09] MEDS: ONDANSETRON 2MG/ML, 2ML IVPush PRN (10:04)
[2020-09-09] MEDS ORDERED: FLU VACCINE PER PHARMACY IM ONE (10:30)
[2020-09-09 13:38] VITALS: BP 106/78
[2020-09-09] MEDS: ENOXAPARIN 40 MG/0.4 ML SQ SCH (16:29)
[2020-09-09] MEDS: FERROUS SULFATE 325 MG TABLET PO SCH (16:29)
[2020-09-09 18:59] VITALS: BP 113/71
[2020-09-09] MEDS: CARVEDILOL 3.125 MG TABLET PO SCH (20:47)
[2020-09-09] MEDS: SENNA/DOCUSATE TABLET PO SCH (20:48)
[2020-09-09] MEDS: PROMETHAZINE 25MG TABLET PO PRN (20:59)
[2020-09-10] MEDS: CEFEPIME 2 GM in DEXTROSE 5% 100 ML IV SCH ×3 (00:36→17:22)
[2020-09-10] MEDS: DAPTOMYCIN 400 MG in SODIUM CHLORIDE 0.9% 100 ML IVPB SCH (02:14)
[2020-09-10 02:20] VITALS: BP 98/66
[2020-09-10 06:13] LABS: HCT (SEDRATE) 27.8 % (39.2-51.8)
[2020-09-10 06:14] LABS: BASOPHILS % (AUTO) 1 % (0-1); EOSINOPHILS % (AUTO) 6 % (1-7); LYMPHOCYTES % (AUTO) 33 % (22-44); MEAN CORPUSCULAR HEMOGLOBIN 30.4 pg (27.5-34.5); MEAN CORPUSCULAR HGB CONC 34.2 g/dL (33.2-36.2); MEAN PLATELET VOLUME 7.2 fL (7.4-10.4); MONOCYTES % (AUTO) 7 % (2-9); NEUTROPHILS % (AUTO) 52 % (42-75); PLATELET COUNT 460 x10^3/uL (130-400); RED BLOOD COUNT 3.18 x10^6/uL (4.38-5.82); RED CELL DISTRIBUTION WIDTH 13.9 % (9.4-14.8)
[2020-09-10 06:23] LABS: MD NO
[2020-09-10 06:24] LABS: CHLORIDE 102 mmol/L (98-107)
[2020-09-10 06:31] VITALS: BP 98/69
[2020-09-10 06:33] LABS: ALANINE AMINOTRANSFERASE 18 U/L (12-78); ALBUMIN 2.2 g/dL (3.4-5.0); ALKALINE PHOSPHATASE 114 U/L (45-117); ANION GAP 5 mmol/L (5-15); BILIRUBIN,TOTAL 0.2 mg/dL (0.2-1.0); C-REACTIVE PROTEIN, QUANT 0.69 mg/dL (0.02-0.49); CALCIUM 9.4 mg/dL (8.5-10.1); CREATINE KINASE, TOTAL 28 U/L (39-308); TOTAL PROTEIN 7.6 g/dL (6.4-8.2)
[2020-09-10] MEDS: INSULIN LISPRO 100 UNITS/ML, PEN SQ-INSULIN SCH ×4 (07:00→22:14)
[2020-09-10] MEDS: PROMETHAZINE 25MG TABLET PO PRN (08:17)
[2020-09-10] MEDS: metFORMIN 500 MG TABLET PO SCH ×2 (08:17→17:22)
[2020-09-10] MEDS: GABAPENTIN 300 MG CAPSULE PO SCH ×3 (08:17→21:47)
[2020-09-10 12:36] VITALS: BP 97/66
[2020-09-10] MEDS: ENOXAPARIN 40 MG/0.4 ML SQ SCH (17:21)
[2020-09-10 18:30] VITALS: BP_SYST 113; BP_SYST 119; BP_DIAS 58; BP_DIAS 65
[2020-09-10] MEDS: CARVEDILOL 3.125 MG TABLET PO SCH (21:47)
[2020-09-10] MEDS: SENNA/DOCUSATE TABLET PO SCH (21:48)
[2020-09-11] MEDS: CEFEPIME 2 GM in DEXTROSE 5% 100 ML IV SCH ×3 (00:39→17:57)
[2020-09-11 00:42] VITALS: BP 104/65
[2020-09-11] MEDS: PROMETHAZINE 25MG TABLET PO PRN ×2 (00:47→16:26)
[2020-09-11] MEDS: DAPTOMYCIN 400 MG in SODIUM CHLORIDE 0.9% 100 ML IVPB SCH (01:50)
[2020-09-11 07:03] VITALS: BP 103/66
[2020-09-11] MEDS: metFORMIN 500 MG TABLET PO SCH ×2 (08:07→16:26)
[2020-09-11] MEDS: GABAPENTIN 300 MG CAPSULE PO SCH ×3 (08:07→20:04)
[2020-09-11] MEDS: INSULIN LISPRO 100 UNITS/ML, PEN SQ-INSULIN SCH ×4 (08:11→20:20)
[2020-09-11 13:20] VITALS: BP 92/57
[2020-09-11] MEDS: FERROUS SULFATE 325 MG TABLET PO SCH (16:26)
[2020-09-11] MEDS: ENOXAPARIN 40 MG/0.4 ML SQ SCH (16:27)
[2020-09-11 19:39] VITALS: BP 114/66
[2020-09-11] MEDS: CARVEDILOL 3.125 MG TABLET PO SCH (20:04)
[2020-09-11] MEDS: SENNA/DOCUSATE TABLET PO SCH (20:04)
[2020-09-12] MEDS: CEFEPIME 2 GM in DEXTROSE 5% 100 ML IV SCH ×3 (01:01→16:27)
[2020-09-12] MEDS: DAPTOMYCIN 400 MG in SODIUM CHLORIDE 0.9% 100 ML IVPB SCH (02:02)
[2020-09-12 02:05] VITALS: BP 118/75
[2020-09-12] MEDS: INSULIN LISPRO 100 UNITS/ML, PEN SQ-INSULIN SCH ×4 (06:08→20:09)
[2020-09-12] MEDS: PROMETHAZINE 25MG TABLET PO PRN (06:15)
[2020-09-12 07:09] VITALS: BP 103/66
[2020-09-12] MEDS: metFORMIN 500 MG TABLET PO SCH ×2 (08:28→16:28)
[2020-09-12] MEDS: GABAPENTIN 300 MG CAPSULE PO SCH ×3 (08:29→20:06)
[2020-09-12] MEDS: ONDANSETRON ODT 4 MG PO PRN ×2 (08:30→20:10)
[2020-09-12 12:34] VITALS: BP 127/72
[2020-09-12] MEDS: ENOXAPARIN 40 MG/0.4 ML SQ SCH (16:27)
[2020-09-12 18:43] VITALS: BP 114/67
[2020-09-12] MEDS: SENNA/DOCUSATE TABLET PO SCH (20:06)
[2020-09-12] MEDS: CARVEDILOL 3.125 MG TABLET PO SCH (20:07)
[2020-09-13 00:01] VITALS: BP 101/70
[2020-09-13] MEDS: CEFEPIME 2 GM in DEXTROSE 5% 100 ML IV SCH ×3 (00:36→15:51)
[2020-09-13] MEDS: DAPTOMYCIN 400 MG in SODIUM CHLORIDE 0.9% 100 ML IVPB SCH (02:03)
[2020-09-13 06:27] VITALS: BP 99/65
[2020-09-13] MEDS: INSULIN LISPRO 100 UNITS/ML, PEN SQ-INSULIN SCH ×4 (07:00→21:00)
[2020-09-13] MEDS: metFORMIN 500 MG TABLET PO SCH ×2 (08:10→15:51)
[2020-09-13] MEDS: GABAPENTIN 300 MG CAPSULE PO SCH ×3 (08:10→21:32)
[2020-09-13 12:06] VITALS: BP 99/61
[2020-09-13] MEDS: FERROUS SULFATE 325 MG TABLET PO SCH (15:51)
[2020-09-13] MEDS: ENOXAPARIN 40 MG/0.4 ML SQ SCH (15:58)
[2020-09-13] MEDS: ONDANSETRON ODT 4 MG PO PRN (15:58)
[2020-09-13] MEDS: CARVEDILOL 3.125 MG TABLET PO SCH (21:00)
[2020-09-13 21:27] VITALS: BP 98/56
[2020-09-13] MEDS: SENNA/DOCUSATE TABLET PO SCH (21:32)
[2020-09-13] MEDS: ONDANSETRON 2MG/ML, 2ML IVPush PRN (21:32)
[2020-09-14] MEDS: CEFEPIME 2 GM in DEXTROSE 5% 100 ML IV SCH ×3 (00:27→16:54)
[2020-09-14 01:52] VITALS: BP 99/59
[2020-09-14] MEDS: DAPTOMYCIN 400 MG in SODIUM CHLORIDE 0.9% 100 ML IVPB SCH (01:52)
[2020-09-14 05:42] LABS: CHLORIDE 102 mmol/L (98-107)
[2020-09-14 05:51] LABS: ANION GAP 6 mmol/L (5-15); CALCIUM 9.5 mg/dL (8.5-10.1); CREATININE 0.94 mg/dL (0.7-1.3)
[2020-09-14 05:56] LABS: BASOPHILS % (AUTO) 1 % (0-1); EOSINOPHILS % (AUTO) 7 % (1-7); LYMPHOCYTES % (AUTO) 24 % (22-44); MEAN CORPUSCULAR HEMOGLOBIN 30.5 pg (27.5-34.5); MEAN CORPUSCULAR HGB CONC 33.9 g/dL (33.2-36.2); MEAN PLATELET VOLUME 7.7 fL (7.4-10.4); MONOCYTES % (AUTO) 6 % (2-9); NEUTROPHILS % (AUTO) 62 % (42-75); PLATELET COUNT 373 x10^3/uL (130-400); RED BLOOD COUNT 3.26 x10^6/uL (4.38-5.82); RED CELL DISTRIBUTION WIDTH 14.9 % (9.4-14.8)
[2020-09-14 06:22] LABS: MD NO
[2020-09-14] MEDS: metFORMIN 500 MG TABLET PO SCH ×2 (07:53→16:53)
[2020-09-14] MEDS: ONDANSETRON 2MG/ML, 2ML IVPush PRN (07:54)
[2020-09-14] MEDS: INSULIN LISPRO 100 UNITS/ML, PEN SQ-INSULIN SCH ×4 (07:54→20:14)
[2020-09-14 08:20] VITALS: BP 100/64
[2020-09-14] MEDS: GABAPENTIN 300 MG CAPSULE PO SCH ×3 (08:21→20:15)
[2020-09-14 14:04] VITALS: BP 100/61
[2020-09-14] MEDS: ENOXAPARIN 40 MG/0.4 ML SQ SCH (16:00)
[2020-09-14 18:36] VITALS: BP 97/58
[2020-09-14] MEDS: CARVEDILOL 3.125 MG TABLET PO SCH (20:14)
[2020-09-14] MEDS: SENNA/DOCUSATE TABLET PO SCH (20:15)
[2020-09-15] MEDS: CEFEPIME 2 GM in DEXTROSE 5% 100 ML IV SCH ×3 (00:45→16:40)
[2020-09-15 01:20] VITALS: BP 104/66
[2020-09-15] MEDS: DAPTOMYCIN 400 MG in SODIUM CHLORIDE 0.9% 100 ML IVPB SCH (02:14)
[2020-09-15] MEDS: INSULIN LISPRO 100 UNITS/ML, PEN SQ-INSULIN SCH ×4 (07:00→21:13)
[2020-09-15 07:38] VITALS: BP 123/81
[2020-09-15] MEDS: metFORMIN 500 MG TABLET PO SCH ×2 (07:42→16:39)
[2020-09-15] MEDS: GABAPENTIN 300 MG CAPSULE PO SCH ×3 (07:42→21:06)
[2020-09-15 13:45] VITALS: BP 92/53
[2020-09-15] MEDS: FERROUS SULFATE 325 MG TABLET PO SCH (16:39)
[2020-09-15] MEDS: ENOXAPARIN 40 MG/0.4 ML SQ SCH (16:50)
[2020-09-15 18:40] VITALS: BP 101/48
[2020-09-15] MEDS: CARVEDILOL 3.125 MG TABLET PO SCH (21:00)
[2020-09-15] MEDS: SENNA/DOCUSATE TABLET PO SCH (21:06)
[2020-09-16] MEDS: CEFEPIME 2 GM in DEXTROSE 5% 100 ML IV SCH ×3 (00:51→16:07)
[2020-09-16 00:53] VITALS: BP 108/68
[2020-09-16] MEDS: DAPTOMYCIN 400 MG in SODIUM CHLORIDE 0.9% 100 ML IVPB SCH (02:12)
[2020-09-16] MEDS: INSULIN LISPRO 100 UNITS/ML, PEN SQ-INSULIN SCH ×4 (07:00→20:38)
[2020-09-16 08:17] VITALS: BP 114/74
[2020-09-16] MEDS: metFORMIN 500 MG TABLET PO SCH ×2 (08:59→16:06)
[2020-09-16] MEDS: GABAPENTIN 300 MG CAPSULE PO SCH ×3 (08:59→20:41)
[2020-09-16] MEDS: OXYcodone/APAP 5/325MG TABLET PO PRN (09:07)
[2020-09-16] MEDS: ONDANSETRON ODT 4 MG PO PRN (11:19)
[2020-09-16 14:13] VITALS: BP 102/67
[2020-09-16] MEDS: ENOXAPARIN 40 MG/0.4 ML SQ SCH (16:24)
[2020-09-16 20:09] VITALS: BP 106/70
[2020-09-16] MEDS: SENNA/DOCUSATE TABLET PO SCH (20:41)
[2020-09-16] MEDS: CARVEDILOL 3.125 MG TABLET PO SCH (21:00)
[2020-09-17] MEDS: CEFEPIME 2 GM in DEXTROSE 5% 100 ML IV SCH ×4 (00:32→20:16)
[2020-09-17] MEDS: DAPTOMYCIN 400 MG in SODIUM CHLORIDE 0.9% 100 ML IVPB SCH (02:05)
[2020-09-17 02:22] VITALS: BP 104/58
[2020-09-17] MEDS: OXYcodone/APAP 5/325MG TABLET PO PRN ×2 (03:26→13:12)
[2020-09-17 05:51] LABS: BASOPHILS % (AUTO) 1 % (0-1); EOSINOPHILS % (AUTO) 9 % (1-7); LYMPHOCYTES % (AUTO) 24 % (22-44); MEAN CORPUSCULAR HEMOGLOBIN 30.4 pg (27.5-34.5); MEAN PLATELET VOLUME 8.3 fL (7.4-10.4); MONOCYTES % (AUTO) 7 % (2-9); NEUTROPHILS % (AUTO) 59 % (42-75); PLATELET COUNT 325 x10^3/uL (130-400); RED BLOOD COUNT 3.12 x10^6/uL (4.38-5.82); RED CELL DISTRIBUTION WIDTH 14.9 % (9.4-14.8)
[2020-09-17 05:52] LABS: HCT (SEDRATE) 32.5 % (39.2-51.8)
[2020-09-17 06:06] LABS: MD NO
[2020-09-17 06:14] LABS: ALANINE AMINOTRANSFERASE 15 U/L (12-78); ALBUMIN 2.4 g/dL (3.4-5.0); ANION GAP 5 mmol/L (5-15); C-REACTIVE PROTEIN, QUANT 0.25 mg/dL (0.02-0.49); CHLORIDE 103 mmol/L (98-107)
[2020-09-17 06:16] LABS: ALKALINE PHOSPHATASE 108 U/L (45-117); BILIRUBIN,TOTAL 0.3 mg/dL (0.2-1.0); CREATINE KINASE, TOTAL 31 U/L (39-308); CREATININE 0.83 mg/dL (0.7-1.3); TOTAL PROTEIN 7.2 g/dL (6.4-8.2)
[2020-09-17 08:04] VITALS: BP 118/78
[2020-09-17] MEDS: INSULIN LISPRO 100 UNITS/ML, PEN SQ-INSULIN SCH ×4 (08:11→20:19)
[2020-09-17] MEDS: GABAPENTIN 300 MG CAPSULE PO SCH ×3 (08:20→20:16)
[2020-09-17] MEDS: metFORMIN 500 MG TABLET PO SCH ×3 (08:20→17:13)
[2020-09-17] MEDS: CARVEDILOL 3.125 MG TABLET PO SCH (08:53)
[2020-09-17] MEDS: ONDANSETRON 2MG/ML, 2ML IVPush PRN ×2 (09:01→13:02)
[2020-09-17] MEDS ORDERED: CHLORHEXIDINE 15 ML UDC ONE (09:19)
[2020-09-17] MEDS ORDERED: FENTANYL PF 100 MCG/2ML ONE (09:29)
[2020-09-17] MEDS ORDERED: ACETAMINOPHEN 325 MG TABLET PO PRN (09:30)
[2020-09-17] MEDS ORDERED: MEPERIDINE/PF 25MG/0.5ML IVPush PRN (09:30)
[2020-09-17] MEDS ORDERED: ALBUTEROL SULFATE 2.5 MG/3 ML NPPB PRN (09:30)
[2020-09-17] MEDS ORDERED: MIDAZOLAM 1 MG/ML, 2ML ONE (09:30)
[2020-09-17] MEDS ORDERED: LORazepam 2 MG/ML, 1ML IVPush PRN (09:30)
[2020-09-17] MEDS ORDERED: LABETALOL 5MG/ML, 20ML IV PRN (09:30)
[2020-09-17] MEDS ORDERED: PROMETHAZINE 25 MG/ML, 1ML IVPush PRN (09:30)
[2020-09-17] MEDS ORDERED: PROPOFOL 10 MG/ML, 20ML ONE (10:44)
[2020-09-17] MEDS ORDERED: ONDANSETRON 2MG/ML, 2ML ONE (10:44)
[2020-09-17] MEDS ORDERED: DEXAMETHASONE 4 MG/ML, 1ML ONE (10:44)
[2020-09-17] MEDS: OXYcodone 5 MG/5 ML ORAL.SOL UDC PO PRN ×2 (11:12→11:30)
[2020-09-17] MEDS: FENTANYL PF 100 MCG/2ML IV PRN ×3 (11:12→11:30)
[2020-09-17] MEDS ORDERED: ACETAMINOPHEN 650 MG/20.3 ML UDC ONE (11:28)
[2020-09-17] MEDS ORDERED: OXYcodone 5 MG/5 ML ORAL.SOL UDC ONE (11:29)
[2020-09-17] MEDS ORDERED: HYDROmorphone 1 MG/ML, 1ML INJ ONE (11:33)
[2020-09-17] MEDS: HYDROmorphone 2 MG/ML, 1ML IVPush PRN (11:35)
[2020-09-17 12:22] VITALS: BP 132/80
[2020-09-17] MEDS: FERROUS SULFATE 325 MG TABLET PO SCH (17:13)
[2020-09-17] MEDS: ENOXAPARIN 40 MG/0.4 ML SQ SCH (17:15)
[2020-09-17 19:54] VITALS: BP 100/64
[2020-09-17] MEDS: SENNA/DOCUSATE TABLET PO SCH (20:17)
[2020-09-18] MEDS: DAPTOMYCIN 400 MG in SODIUM CHLORIDE 0.9% 100 ML IVPB SCH (02:25)
[2020-09-18 02:34] VITALS: BP 101/64
[2020-09-18] MEDS: OXYcodone/APAP 5/325MG TABLET PO PRN ×3 (03:51→16:48)
[2020-09-18] MEDS: CEFEPIME 2 GM in DEXTROSE 5% 100 ML IV SCH ×3 (03:59→20:06)
[2020-09-18] MEDS: ONDANSETRON 2MG/ML, 2ML IVPush PRN ×2 (05:49→11:57)
[2020-09-18] MEDS: INSULIN LISPRO 100 UNITS/ML, PEN SQ-INSULIN SCH ×4 (07:00→20:08)
[2020-09-18 07:48] VITALS: BP 102/67
[2020-09-18] MEDS: GABAPENTIN 300 MG CAPSULE PO SCH ×3 (08:42→20:07)
[2020-09-18] MEDS: metFORMIN 500 MG TABLET PO SCH ×2 (08:43→16:48)
[2020-09-18 13:15] VITALS: BP 109/68
[2020-09-18] MEDS: ENOXAPARIN 40 MG/0.4 ML SQ SCH (16:49)
[2020-09-18 18:29] VITALS: BP 96/55
[2020-09-18] MEDS: SENNA/DOCUSATE TABLET PO SCH (20:07)
[2020-09-18] MEDS: CARVEDILOL 3.125 MG TABLET PO SCH (20:47)
[2020-09-19 00:14] VITALS: BP 98/60
[2020-09-19] MEDS: OXYcodone/APAP 5/325MG TABLET PO PRN ×3 (00:21→16:55)
[2020-09-19 00:26] VITALS: BP 109/68
[2020-09-19] MEDS: DAPTOMYCIN 400 MG in SODIUM CHLORIDE 0.9% 100 ML IVPB SCH (02:31)
[2020-09-19] MEDS: CEFEPIME 2 GM in DEXTROSE 5% 100 ML IV SCH (04:02)
[2020-09-19 06:21] VITALS: BP 101/61
[2020-09-19] MEDS: INSULIN LISPRO 100 UNITS/ML, PEN SQ-INSULIN SCH ×4 (07:00→21:00)
[2020-09-19] MEDS: GABAPENTIN 300 MG CAPSULE PO SCH ×3 (07:54→21:24)
[2020-09-19] MEDS: ONDANSETRON 2MG/ML, 2ML IVPush PRN ×2 (07:55→19:18)
[2020-09-19] MEDS: metFORMIN 500 MG TABLET PO SCH ×2 (07:55→16:55)
[2020-09-19] MEDS: ONDANSETRON ODT 4 MG PO PRN ×2 (09:26→16:54)
[2020-09-19] MEDS ORDERED: VANCOMYCIN PER PHARMACY MC PRN (12:00)
[2020-09-19] MEDS ORDERED: PHARMACOKINETIC MONITORING MC PRN (13:00)
[2020-09-19] MEDS ORDERED: VANCOMYCIN 1,800 MG in SODIUM CHLORIDE 0.9% 250 ML IV ONE (13:00)
[2020-09-19 13:41] VITALS: BP 120/69
[2020-09-19] MEDS: ENOXAPARIN 40 MG/0.4 ML SQ SCH (16:55)
[2020-09-19] MEDS: FERROUS SULFATE 325 MG TABLET PO SCH (16:55)
[2020-09-19 18:55] VITALS: BP 111/69
[2020-09-19] MEDS: SENNA/DOCUSATE TABLET PO SCH (21:24)
[2020-09-19] MEDS: CARVEDILOL 3.125 MG TABLET PO SCH (21:24)
[2020-09-20 00:19] VITALS: BP 106/65
[2020-09-20] MEDS: VANCOMYCIN 1,500 MG in SODIUM CHLORIDE 0.9% 250 ML IV SCH ×2 (01:03→13:22)
[2020-09-20 06:00] VITALS: BP 103/60
[2020-09-20] MEDS: INSULIN LISPRO 100 UNITS/ML, PEN SQ-INSULIN SCH ×4 (07:00→20:33)
[2020-09-20] MEDS: metFORMIN 500 MG TABLET PO SCH ×2 (07:32→16:03)
[2020-09-20] MEDS: ONDANSETRON 2MG/ML, 2ML IVPush PRN ×2 (07:32→13:41)
[2020-09-20] MEDS: GABAPENTIN 300 MG CAPSULE PO SCH ×3 (07:33→20:34)
[2020-09-20] MEDS: CEFEPIME 2 GM in DEXTROSE 5% 100 ML IV SCH ×2 (11:44→19:56)
[2020-09-20] MEDS: OXYcodone/APAP 5/325MG TABLET PO PRN (13:41)
[2020-09-20 15:10] VITALS: BP 121/66
[2020-09-20] MEDS: ENOXAPARIN 40 MG/0.4 ML SQ SCH (16:12)
[2020-09-20 19:07] VITALS: BP 120/63
[2020-09-20] MEDS: CARVEDILOL 3.125 MG TABLET PO SCH (20:34)
[2020-09-20] MEDS: SENNA/DOCUSATE TABLET PO SCH (20:34)
[2020-09-21] MEDS: VANCOMYCIN 1,500 MG in SODIUM CHLORIDE 0.9% 250 ML IV SCH ×2 (01:17→13:00)
[2020-09-21 01:20] VITALS: BP 103/62
[2020-09-21] MEDS: CEFEPIME 2 GM in DEXTROSE 5% 100 ML IV SCH ×3 (04:08→20:04)
[2020-09-21] MEDS: INSULIN LISPRO 100 UNITS/ML, PEN SQ-INSULIN SCH ×4 (07:00→20:03)
[2020-09-21 07:10] VITALS: BP 113/76
[2020-09-21] MEDS: GABAPENTIN 300 MG CAPSULE PO SCH ×3 (07:10→20:03)
[2020-09-21] MEDS: metFORMIN 500 MG TABLET PO SCH ×2 (07:11→17:01)
[2020-09-21] MEDS: ONDANSETRON 2MG/ML, 2ML IVPush PRN ×2 (11:36→17:03)
[2020-09-21] MEDS: HYDROmorphone 2 MG/ML, 1ML IVPush PRN (12:20)
[2020-09-21 13:39] LABS: CREATININE 0.98 mg/dL (0.7-1.3)
[2020-09-21 13:51] VITALS: BP 122/76
[2020-09-21] MEDS: ENOXAPARIN 40 MG/0.4 ML SQ SCH (17:02)
[2020-09-21] MEDS: FERROUS SULFATE 325 MG TABLET PO SCH (17:02)
[2020-09-21 18:09] VITALS: BP 104/62
[2020-09-21] MEDS: SENNA/DOCUSATE TABLET PO SCH (20:03)
[2020-09-21] MEDS: CARVEDILOL 3.125 MG TABLET PO SCH (20:03)
[2020-09-21] MEDS: VANCOMYCIN 1,400 MG in SODIUM CHLORIDE 0.9% 250 ML IV SCH (22:17)
[2020-09-22] MEDS: CEFEPIME 2 GM in DEXTROSE 5% 100 ML IV SCH ×3 (03:39→19:44)
[2020-09-22 03:41] VITALS: BP 110/74
[2020-09-22 06:37] VITALS: BP 125/73
[2020-09-22] MEDS: INSULIN LISPRO 100 UNITS/ML, PEN SQ-INSULIN SCH ×4 (07:00→20:43)
[2020-09-22] MEDS: GABAPENTIN 300 MG CAPSULE PO SCH ×3 (07:52→21:56)
[2020-09-22] MEDS: metFORMIN 500 MG TABLET PO SCH ×2 (07:52→16:06)
[2020-09-22] MEDS: ONDANSETRON 2MG/ML, 2ML IVPush PRN (07:59)
[2020-09-22] MEDS: OXYcodone/APAP 5/325MG TABLET PO PRN ×2 (11:05→18:44)
[2020-09-22] MEDS: DOCUSATE 100 MG CAPSULE PO SCH ×2 (11:35→21:56)
[2020-09-22] MEDS: ALUMINUM/MAG/SIMETHICONE 30 ML UDC PO PRN ×2 (11:35→21:55)
[2020-09-22 12:02] VITALS: BP 104/65
[2020-09-22 12:08] LABS: BASOPHILS % (AUTO) 0 % (0-1); EOSINOPHILS % (AUTO) 1 % (1-7); LYMPHOCYTES % (AUTO) 16 % (22-44); MEAN CORPUSCULAR HEMOGLOBIN 29.9 pg (27.5-34.5); MEAN CORPUSCULAR HGB CONC 33.3 g/dL (33.2-36.2); MEAN PLATELET VOLUME 7.5 fL (7.4-10.4); MONOCYTES % (AUTO) 6 % (2-9); NEUTROPHILS % (AUTO) 77 % (42-75); PLATELET COUNT 307 x10^3/uL (130-400); RED BLOOD COUNT 3.36 x10^6/uL (4.38-5.82); RED CELL DISTRIBUTION WIDTH 14.8 % (9.4-14.8)
[2020-09-22 12:09] LABS: MD NO
[2020-09-22 12:14] LABS: ALANINE AMINOTRANSFERASE 13 U/L (12-78); ALBUMIN 2.6 g/dL (3.4-5.0); ANION GAP 6 mmol/L (5-15); CALCIUM 9.2 mg/dL (8.5-10.1); CHLORIDE 99 mmol/L (98-107); CREATININE 1.09 mg/dL (0.7-1.3)
[2020-09-22 12:17] LABS: ALKALINE PHOSPHATASE 106 U/L (45-117); BILIRUBIN,TOTAL 0.3 mg/dL (0.2-1.0); TOTAL PROTEIN 7.9 g/dL (6.4-8.2)
[2020-09-22] MEDS: VANCOMYCIN 1,400 MG in SODIUM CHLORIDE 0.9% 250 ML IV SCH (16:06)
[2020-09-22] MEDS: ENOXAPARIN 40 MG/0.4 ML SQ SCH (16:06)
[2020-09-22 20:04] VITALS: BP 112/75
[2020-09-22 21:54] VITALS: BP 105/69
[2020-09-22] MEDS: SENNA/DOCUSATE TABLET PO SCH (21:55)
[2020-09-22] MEDS: CARVEDILOL 3.125 MG TABLET PO SCH (21:56)
[2020-09-22] MEDS: ONDANSETRON ODT 4 MG PO PRN (21:56)
[2020-09-23 00:14] VITALS: BP 118/76
[2020-09-23] MEDS: CEFEPIME 2 GM in DEXTROSE 5% 100 ML IV SCH ×3 (03:33→19:58)
[2020-09-23] MEDS: OMEPRAZOLE 20 MG CAPSULE.DR PO SCH (05:34)
[2020-09-23] MEDS: INSULIN LISPRO 100 UNITS/ML, PEN SQ-INSULIN SCH ×4 (07:00→20:06)
[2020-09-23 08:15] VITALS: BP 104/70
[2020-09-23] MEDS: metFORMIN 500 MG TABLET PO SCH ×2 (08:42→15:33)
[2020-09-23] MEDS: ONDANSETRON 2MG/ML, 2ML IVPush PRN (08:42)
[2020-09-23] MEDS: DOCUSATE 100 MG CAPSULE PO SCH ×2 (08:42→20:18)
[2020-09-23] MEDS: GABAPENTIN 300 MG CAPSULE PO SCH ×3 (08:42→21:46)
[2020-09-23] MEDS: VANCOMYCIN 1,400 MG in SODIUM CHLORIDE 0.9% 250 ML IV SCH ×2 (10:00→13:07)
[2020-09-23 14:13] VITALS: BP 122/68
[2020-09-23] MEDS: FERROUS SULFATE 325 MG TABLET PO SCH (15:33)
[2020-09-23] MEDS: ENOXAPARIN 40 MG/0.4 ML SQ SCH (15:33)
[2020-09-23] MEDS: ALUMINUM/MAG/SIMETHICONE 30 ML UDC PO PRN ×2 (15:43→23:37)
[2020-09-23 20:04] VITALS: BP 104/63
[2020-09-23] MEDS: CARVEDILOL 3.125 MG TABLET PO SCH (20:18)
[2020-09-23] MEDS: SENNA/DOCUSATE TABLET PO SCH (20:18)
[2020-09-24 00:07] VITALS: BP 115/73
[2020-09-24] MEDS: CEFEPIME 2 GM in DEXTROSE 5% 100 ML IV SCH ×3 (03:35→19:28)
[2020-09-24 06:12] LABS: ALBUMIN 2.4 g/dL (3.4-5.0); ANION GAP 4 mmol/L (5-15); CALCIUM 9.5 mg/dL (8.5-10.1); CHLORIDE 100 mmol/L (98-107)
[2020-09-24 06:15] LABS: BASOPHILS % (AUTO) 0 % (0-1); EOSINOPHILS % (AUTO) 2 % (1-7); LYMPHOCYTES % (AUTO) 34 % (22-44); MEAN CORPUSCULAR HEMOGLOBIN 29.9 pg (27.5-34.5); MEAN CORPUSCULAR HGB CONC 33.7 g/dL (33.2-36.2); MEAN PLATELET VOLUME 7.9 fL (7.4-10.4); MONOCYTES % (AUTO) 8 % (2-9); NEUTROPHILS % (AUTO) 57 % (42-75); PLATELET COUNT 278 x10^3/uL (130-400); RED BLOOD COUNT 3.15 x10^6/uL (4.38-5.82); RED CELL DISTRIBUTION WIDTH 14.9 % (9.4-14.8)
[2020-09-24 06:16] LABS: HCT (SEDRATE) 27.6 % (39.2-51.8)
[2020-09-24 06:22] LABS: ALANINE AMINOTRANSFERASE 12 U/L (12-78); ALKALINE PHOSPHATASE 99 U/L (45-117); BILIRUBIN,TOTAL 0.2 mg/dL (0.2-1.0); CREATININE 1.04 mg/dL (0.7-1.3); TOTAL PROTEIN 7.4 g/dL (6.4-8.2)
[2020-09-24 06:28] LABS: MD NO
[2020-09-24] MEDS: OMEPRAZOLE 20 MG CAPSULE.DR PO SCH (06:35)
[2020-09-24] MEDS: ALUMINUM/MAG/SIMETHICONE 30 ML UDC PO PRN (06:41)
[2020-09-24] MEDS: VANCOMYCIN 1,400 MG in SODIUM CHLORIDE 0.9% 250 ML IV SCH (06:41)
[2020-09-24] MEDS: INSULIN LISPRO 100 UNITS/ML, PEN SQ-INSULIN SCH ×4 (07:00→20:35)
[2020-09-24] MEDS: GABAPENTIN 300 MG CAPSULE PO SCH ×3 (07:59→22:14)
[2020-09-24] MEDS: ONDANSETRON 2MG/ML, 2ML IVPush PRN (07:59)
[2020-09-24] MEDS: metFORMIN 500 MG TABLET PO SCH ×2 (07:59→16:56)
[2020-09-24] MEDS: DOCUSATE 100 MG CAPSULE PO SCH ×2 (07:59→20:35)
[2020-09-24 08:03] VITALS: BP 159/94
[2020-09-24] MEDS: METOCLOPRAMIDE 10MG TABLET PO SCH ×3 (11:24→22:14)
[2020-09-24 14:15] VITALS: BP 100/61
[2020-09-24] MEDS: POLYETHYLENE GLYCOL 17 GM PACKET PO SCH (16:56)
[2020-09-24] MEDS: ENOXAPARIN 40 MG/0.4 ML SQ SCH (16:56)
[2020-09-24 18:23] VITALS: BP 108/81
[2020-09-24 20:32] VITALS: BP 104/73
[2020-09-24] MEDS: SENNA/DOCUSATE TABLET PO SCH (20:34)
[2020-09-24] MEDS: CARVEDILOL 3.125 MG TABLET PO SCH (20:34)
[2020-09-24] MEDS: VANCOMYCIN 1,600 MG in SODIUM CHLORIDE 0.9% 250 ML IV SCH (22:14)
[2020-09-25] VITALS (7 sets, daily range): BP systolic 87–132; BP diastolic 51–88
[2020-09-25] MEDS: CEFEPIME 2 GM in DEXTROSE 5% 100 ML IV SCH ×3 (03:27→19:53)
[2020-09-25] MEDS: OMEPRAZOLE 20 MG CAPSULE.DR PO SCH (06:21)
[2020-09-25] MEDS: METOCLOPRAMIDE 10MG TABLET PO SCH ×4 (06:21→20:23)
[2020-09-25] MEDS: INSULIN LISPRO 100 UNITS/ML, PEN SQ-INSULIN SCH ×4 (07:00→20:24)
[2020-09-25] MEDS: POLYETHYLENE GLYCOL 17 GM PACKET PO SCH (09:05)
[2020-09-25] MEDS: DOCUSATE 100 MG CAPSULE PO SCH ×2 (09:05→20:24)
[2020-09-25] MEDS: GABAPENTIN 300 MG CAPSULE PO SCH ×3 (09:06→20:23)
[2020-09-25] MEDS: metFORMIN 500 MG TABLET PO SCH ×2 (09:06→16:31)
[2020-09-25] MEDS: VANCOMYCIN 1,600 MG in SODIUM CHLORIDE 0.9% 250 ML IV SCH ×2 (10:14→22:11)
[2020-09-25] MEDS: FERROUS SULFATE 325 MG TABLET PO SCH (16:31)
[2020-09-25] MEDS: ENOXAPARIN 40 MG/0.4 ML SQ SCH (16:31)
[2020-09-25] MEDS: SENNA/DOCUSATE TABLET PO SCH (20:23)
[2020-09-25 20:25] LABS: BASOPHILS % (AUTO) 0 % (0-1); EOSINOPHILS % (AUTO) 2 % (1-7); LYMPHOCYTES % (AUTO) 26 % (22-44); MEAN CORPUSCULAR HEMOGLOBIN 29.4 pg (27.5-34.5); MEAN CORPUSCULAR HGB CONC 33.2 g/dL (33.2-36.2); MONOCYTES % (AUTO) 6 % (2-9); NEUTROPHILS % (AUTO) 66 % (42-75); PLATELET COUNT 292 x10^3/uL (130-400); RED BLOOD COUNT 3.34 x10^6/uL (4.38-5.82)
[2020-09-25] MEDS: CARVEDILOL 3.125 MG TABLET PO SCH (20:25)
[2020-09-25 20:27] LABS: MD NO
[2020-09-26 00:24] VITALS: BP 108/65
[2020-09-26] MEDS: CEFEPIME 2 GM in DEXTROSE 5% 100 ML IV SCH ×3 (04:08→20:07)
[2020-09-26] MEDS: OMEPRAZOLE 20 MG CAPSULE.DR PO SCH (05:18)
[2020-09-26] MEDS: INSULIN LISPRO 100 UNITS/ML, PEN SQ-INSULIN SCH ×4 (07:00→20:31)
[2020-09-26] MEDS: METOCLOPRAMIDE 10MG TABLET PO SCH ×4 (07:41→20:28)
[2020-09-26] MEDS: DOCUSATE 100 MG CAPSULE PO SCH ×2 (07:41→20:30)
[2020-09-26] MEDS: GABAPENTIN 300 MG CAPSULE PO SCH ×3 (07:41→20:30)
[2020-09-26] MEDS: POLYETHYLENE GLYCOL 17 GM PACKET PO SCH (07:42)
[2020-09-26] MEDS: metFORMIN 500 MG TABLET PO SCH ×2 (07:42→16:49)
[2020-09-26 07:46] VITALS: BP 128/82
[2020-09-26] MEDS: VANCOMYCIN 1,600 MG in SODIUM CHLORIDE 0.9% 250 ML IV SCH ×2 (09:44→22:00)
[2020-09-26 14:02] VITALS: BP 114/68
[2020-09-26] MEDS: ENOXAPARIN 40 MG/0.4 ML SQ SCH (16:52)
[2020-09-26 20:05] VITALS: BP 105/62
[2020-09-26] MEDS: SENNA/DOCUSATE TABLET PO SCH (20:30)
[2020-09-26] MEDS: CARVEDILOL 3.125 MG TABLET PO SCH (20:34)
[2020-09-26] MEDS ORDERED: CATHFLO-ALTEPLASE 2 MG/2 ML CATHFLUSH ONE (23:00)
[2020-09-27 02:06] VITALS: BP 113/73
[2020-09-27] MEDS: CEFEPIME 2 GM in DEXTROSE 5% 100 ML IV SCH ×3 (04:29→19:51)
[2020-09-27] MEDS: ONDANSETRON ODT 4 MG PO PRN ×2 (04:55→08:56)
[2020-09-27] MEDS: OMEPRAZOLE 20 MG CAPSULE.DR PO SCH (06:16)
[2020-09-27] MEDS: METOCLOPRAMIDE 10MG TABLET PO SCH ×4 (06:16→20:25)
[2020-09-27] MEDS: INSULIN LISPRO 100 UNITS/ML, PEN SQ-INSULIN SCH ×4 (07:00→19:52)
[2020-09-27 07:07] VITALS: BP 111/66
[2020-09-27] MEDS: DOCUSATE 100 MG CAPSULE PO SCH ×2 (08:55→19:56)
[2020-09-27] MEDS: GABAPENTIN 300 MG CAPSULE PO SCH ×3 (08:55→19:52)
[2020-09-27] MEDS: metFORMIN 500 MG TABLET PO SCH ×2 (08:55→16:54)
[2020-09-27] MEDS: POLYETHYLENE GLYCOL 17 GM PACKET PO SCH (08:55)
[2020-09-27] MEDS ORDERED: VANCOMYCIN 1,600 MG in SODIUM CHLORIDE 0.9% 250 ML IV SCH ×2 (10:00→22:00)
[2020-09-27 12:09] VITALS: BP 112/76
[2020-09-27] MEDS: FERROUS SULFATE 325 MG TABLET PO SCH (16:52)
[2020-09-27] MEDS: ENOXAPARIN 40 MG/0.4 ML SQ SCH (16:53)
[2020-09-27 18:18] VITALS: BP 128/78
[2020-09-27] MEDS: CARVEDILOL 3.125 MG TABLET PO SCH (19:52)
[2020-09-27] MEDS: SENNA/DOCUSATE TABLET PO SCH (19:56)
[2020-09-28 00:28] VITALS: BP 125/64
[2020-09-28] MEDS: CEFEPIME 2 GM in DEXTROSE 5% 100 ML IV SCH ×3 (04:19→21:38)
[2020-09-28 04:20] LABS: BASOPHILS % (AUTO) 0 % (0-1); EOSINOPHILS % (AUTO) 4 % (1-7); LYMPHOCYTES % (AUTO) 27 % (22-44); MD NO; MEAN CORPUSCULAR HEMOGLOBIN 29.9 pg (27.5-34.5); MEAN CORPUSCULAR HGB CONC 33.4 g/dL (33.2-36.2); MEAN PLATELET VOLUME 7.5 fL (7.4-10.4); MONOCYTES % (AUTO) 7 % (2-9); NEUTROPHILS % (AUTO) 63 % (42-75); PLATELET COUNT 267 x10^3/uL (130-400); RED BLOOD COUNT 3.42 x10^6/uL (4.38-5.82); RED CELL DISTRIBUTION WIDTH 14.7 % (9.4-14.8)
[2020-09-28 04:40] LABS: ALANINE AMINOTRANSFERASE 16 U/L (12-78); ALBUMIN 2.5 g/dL (3.4-5.0); ANION GAP 6 mmol/L (5-15); CALCIUM 9.3 mg/dL (8.5-10.1); CHLORIDE 102 mmol/L (98-107)
[2020-09-28 04:43] LABS: ALKALINE PHOSPHATASE 102 U/L (45-117); BILIRUBIN,TOTAL 0.3 mg/dL (0.2-1.0); CREATININE 0.98 mg/dL (0.7-1.3); TOTAL PROTEIN 7.3 g/dL (6.4-8.2)
[2020-09-28] MEDS: OMEPRAZOLE 20 MG CAPSULE.DR PO SCH (05:47)
[2020-09-28] MEDS: METOCLOPRAMIDE 10MG TABLET PO SCH ×4 (05:49→20:29)
[2020-09-28 07:29] VITALS: BP 108/73
[2020-09-28] MEDS: INSULIN LISPRO 100 UNITS/ML, PEN SQ-INSULIN SCH ×4 (07:47→20:37)
[2020-09-28] MEDS: metFORMIN 500 MG TABLET PO SCH ×2 (07:48→16:48)
[2020-09-28] MEDS: POLYETHYLENE GLYCOL 17 GM PACKET PO SCH (10:14)
[2020-09-28] MEDS: GABAPENTIN 300 MG CAPSULE PO SCH ×3 (10:14→20:26)
[2020-09-28] MEDS: DOCUSATE 100 MG CAPSULE PO SCH ×2 (10:14→20:29)
[2020-09-28] MEDS: VANCOMYCIN IV SCH (11:37)
[2020-09-28] MEDS: SODIUM CHLORIDE 0.9% IV SCH (11:37)
[2020-09-28 12:12] VITALS: BP 110/72
[2020-09-28] MEDS: ENOXAPARIN 40 MG/0.4 ML SQ SCH (16:49)
[2020-09-28 18:26] VITALS: BP 111/67
[2020-09-28] MEDS: CARVEDILOL 3.125 MG TABLET PO SCH (20:29)
[2020-09-28] MEDS: SENNA/DOCUSATE TABLET PO SCH (20:30)
[2020-09-29 00:39] VITALS: BP 114/67
[2020-09-29 05:42] LABS: BASOPHILS % (AUTO) 0 % (0-1); EOSINOPHILS % (AUTO) 4 % (1-7); LYMPHOCYTES % (AUTO) 29 % (22-44); MEAN CORPUSCULAR HEMOGLOBIN 29.9 pg (27.5-34.5); MEAN CORPUSCULAR HGB CONC 33.8 g/dL (33.2-36.2); MEAN PLATELET VOLUME 7.4 fL (7.4-10.4); MONOCYTES % (AUTO) 8 % (2-9); NEUTROPHILS % (AUTO) 59 % (42-75); PLATELET COUNT 284 x10^3/uL (130-400); RED BLOOD COUNT 3.44 x10^6/uL (4.38-5.82); RED CELL DISTRIBUTION WIDTH 14.9 % (9.4-14.8)
[2020-09-29] MEDS: CEFEPIME 2 GM in DEXTROSE 5% 100 ML IV SCH ×2 (05:42→13:05)
[2020-09-29 05:45] LABS: MD NO
[2020-09-29] MEDS: OMEPRAZOLE 20 MG CAPSULE.DR PO SCH (05:45)
[2020-09-29] MEDS: METOCLOPRAMIDE 10MG TABLET PO SCH ×4 (05:45→20:42)
[2020-09-29 05:48] LABS: ALANINE AMINOTRANSFERASE 23 U/L (12-78); ALBUMIN 2.6 g/dL (3.4-5.0); ANION GAP 5 mmol/L (5-15); CHLORIDE 104 mmol/L (98-107); CREATININE 0.95 mg/dL (0.7-1.3)
[2020-09-29 05:50] LABS: ALKALINE PHOSPHATASE 97 U/L (45-117); BILIRUBIN,TOTAL 0.2 mg/dL (0.2-1.0); TOTAL PROTEIN 7.4 g/dL (6.4-8.2)
[2020-09-29] MEDS: INSULIN LISPRO 100 UNITS/ML, PEN SQ-INSULIN SCH ×4 (07:00→21:00)
[2020-09-29] MEDS: GABAPENTIN 300 MG CAPSULE PO SCH ×3 (08:09→20:42)
[2020-09-29] MEDS: POLYETHYLENE GLYCOL 17 GM PACKET PO SCH (08:09)
[2020-09-29] MEDS: metFORMIN 500 MG TABLET PO SCH ×2 (08:09→16:24)
[2020-09-29] MEDS: DOCUSATE 100 MG CAPSULE PO SCH ×2 (08:09→20:44)
[2020-09-29 08:38] VITALS: BP 110/70
[2020-09-29] MEDS: VANCOMYCIN IV SCH (11:09)
[2020-09-29] MEDS: SODIUM CHLORIDE 0.9% IV SCH (11:09)
[2020-09-29 14:35] VITALS: BP 95/64
[2020-09-29] MEDS: ENOXAPARIN 40 MG/0.4 ML SQ SCH (16:24)
[2020-09-29] MEDS: FERROUS SULFATE 325 MG TABLET PO SCH (16:24)
[2020-09-29 16:25] VITALS: BP 105/65
[2020-09-29] MEDS: PIPERACILLIN/TAZO/PMX 4.5GM 100 ML IV SCH ×2 (17:18→22:34)
[2020-09-29 19:47] VITALS: BP 118/62
[2020-09-29] MEDS: CARVEDILOL 3.125 MG TABLET PO SCH (20:43)
[2020-09-29] MEDS: DORZOLAMIDE LEFTEYE SCH (20:54)
[2020-09-29] MEDS: SENNA/DOCUSATE TABLET PO SCH (20:54)
[2020-09-29] MEDS: TIMOLOL MALEATE LEFTEYE SCH (20:54)
[2020-09-30 00:37] VITALS: BP 116/73
[2020-09-30] MEDS: PIPERACILLIN/TAZO/PMX 4.5GM 100 ML IV SCH ×4 (04:10→22:32)
[2020-09-30] MEDS: ONDANSETRON ODT 4 MG PO PRN ×2 (04:23→20:35)
[2020-09-30 04:28] LABS: HCT (SEDRATE) 31.7 % (39.2-51.8)
[2020-09-30 04:30] LABS: BASOPHILS % (AUTO) 0 % (0-1); EOSINOPHILS % (AUTO) 3 % (1-7); LYMPHOCYTES % (AUTO) 25 % (22-44); MEAN CORPUSCULAR HEMOGLOBIN 30.4 pg (27.5-34.5); MEAN CORPUSCULAR HGB CONC 34.4 g/dL (33.2-36.2); MEAN PLATELET VOLUME 7.3 fL (7.4-10.4); MONOCYTES % (AUTO) 6 % (2-9); NEUTROPHILS % (AUTO) 65 % (42-75); PLATELET COUNT 279 x10^3/uL (130-400); RED BLOOD COUNT 3.37 x10^6/uL (4.38-5.82); RED CELL DISTRIBUTION WIDTH 15.1 % (9.4-14.8)
[2020-09-30 04:38] LABS: ALANINE AMINOTRANSFERASE 22 U/L (12-78); ALBUMIN 2.5 g/dL (3.4-5.0); ANION GAP 4 mmol/L (5-15); CALCIUM 9.2 mg/dL (8.5-10.1); CHLORIDE 104 mmol/L (98-107); CREATININE 1.16 mg/dL (0.7-1.3)
[2020-09-30 04:40] LABS: ALKALINE PHOSPHATASE 107 U/L (45-117); BILIRUBIN,TOTAL 0.2 mg/dL (0.2-1.0); TOTAL PROTEIN 7.2 g/dL (6.4-8.2)
[2020-09-30 04:44] LABS: MD NO
[2020-09-30] MEDS: OMEPRAZOLE 20 MG CAPSULE.DR PO SCH (05:30)
[2020-09-30 07:05] VITALS: BP 144/75
[2020-09-30] MEDS: VANCOMYCIN 1,750 MG in SODIUM CHLORIDE 0.9% 250 ML IV SCH (08:12)
[2020-09-30] MEDS: GABAPENTIN 300 MG CAPSULE PO SCH ×3 (08:12→20:34)
[2020-09-30] MEDS: LACTOBACILLUS CHEW TABLET PO SCH ×3 (08:12→20:34)
[2020-09-30] MEDS: DOCUSATE 100 MG CAPSULE PO SCH ×2 (08:12→20:36)
[2020-09-30] MEDS: METOCLOPRAMIDE 10MG TABLET PO SCH ×4 (08:12→20:36)
[2020-09-30] MEDS: metFORMIN 500 MG TABLET PO SCH ×2 (08:12→16:08)
[2020-09-30] MEDS: INSULIN LISPRO 100 UNITS/ML, PEN SQ-INSULIN SCH ×4 (08:13→20:00)
[2020-09-30] MEDS: POLYETHYLENE GLYCOL 17 GM PACKET PO SCH (08:16)
[2020-09-30] MEDS: TIMOLOL MALEATE LEFTEYE SCH ×2 (09:00→20:36)
[2020-09-30] MEDS: DORZOLAMIDE LEFTEYE SCH ×2 (09:00→20:36)
[2020-09-30 14:39] VITALS: BP 99/66
[2020-09-30] MEDS: ENOXAPARIN 40 MG/0.4 ML SQ SCH (16:07)
[2020-09-30 19:46] VITALS: BP 112/73
[2020-09-30] MEDS: CARVEDILOL 3.125 MG TABLET PO SCH (20:35)
[2020-09-30] MEDS: SENNA/DOCUSATE TABLET PO SCH (20:39)
[2020-10-01 03:25] VITALS: BP 108/65
[2020-10-01] MEDS: PIPERACILLIN/TAZO/PMX 4.5GM 100 ML IV SCH ×4 (04:30→22:14)
[2020-10-01 05:43] LABS: BASOPHILS % (AUTO) 0 % (0-1); EOSINOPHILS % (AUTO) 4 % (1-7); LYMPHOCYTES % (AUTO) 26 % (22-44); MEAN CORPUSCULAR HEMOGLOBIN 29.7 pg (27.5-34.5); MEAN CORPUSCULAR HGB CONC 33.6 g/dL (33.2-36.2); MEAN PLATELET VOLUME 7.3 fL (7.4-10.4); MONOCYTES % (AUTO) 6 % (2-9); NEUTROPHILS % (AUTO) 63 % (42-75); PLATELET COUNT 282 x10^3/uL (130-400); RED BLOOD COUNT 3.41 x10^6/uL (4.38-5.82); RED CELL DISTRIBUTION WIDTH 15.3 % (9.4-14.8)
[2020-10-01 05:44] LABS: HCT (SEDRATE) 30.1 % (39.2-51.8)
[2020-10-01 05:46] LABS: MD NO
[2020-10-01 05:56] LABS: ALANINE AMINOTRANSFERASE 25 U/L (12-78); ALBUMIN 2.6 g/dL (3.4-5.0); ANION GAP 4 mmol/L (5-15); CALCIUM 8.9 mg/dL (8.5-10.1); CHLORIDE 103 mmol/L (98-107); CREATININE 1.21 mg/dL (0.7-1.3)
[2020-10-01] MEDS: OMEPRAZOLE 20 MG CAPSULE.DR PO SCH (05:56)
[2020-10-01 05:58] LABS: ALKALINE PHOSPHATASE 96 U/L (45-117); BILIRUBIN,TOTAL 0.2 mg/dL (0.2-1.0); TOTAL PROTEIN 7.3 g/dL (6.4-8.2)
[2020-10-01] MEDS: INSULIN LISPRO 100 UNITS/ML, PEN SQ-INSULIN SCH ×4 (07:00→21:00)
[2020-10-01] MEDS: METOCLOPRAMIDE 10MG TABLET PO SCH ×4 (08:25→22:13)
[2020-10-01] MEDS: metFORMIN 500 MG TABLET PO SCH ×2 (08:25→16:41)
[2020-10-01] MEDS: GABAPENTIN 300 MG CAPSULE PO SCH ×3 (08:25→22:13)
[2020-10-01] MEDS: LACTOBACILLUS CHEW TABLET PO SCH ×3 (08:25→22:20)
[2020-10-01] MEDS: TIMOLOL MALEATE LEFTEYE SCH ×2 (08:26→22:15)
[2020-10-01] MEDS: DOCUSATE 100 MG CAPSULE PO SCH ×2 (08:26→22:13)
[2020-10-01] MEDS: VANCOMYCIN 1,750 MG in SODIUM CHLORIDE 0.9% 250 ML IV SCH (08:26)
[2020-10-01] MEDS: DORZOLAMIDE LEFTEYE SCH ×2 (08:26→22:15)
[2020-10-01 08:40] VITALS: BP 115/72
[2020-10-01 13:06] VITALS: BP 106/69
[2020-10-01] MEDS ORDERED: ARTIFICIAL TEARS 15 DROP/ML BOTTLE EACHEYE PRN (13:30)
[2020-10-01] MEDS: FERROUS SULFATE 325 MG TABLET PO SCH (16:41)
[2020-10-01] MEDS: ENOXAPARIN 40 MG/0.4 ML SQ SCH (16:41)
[2020-10-01 19:16] VITALS: BP 132/83
[2020-10-01] MEDS: SENNA/DOCUSATE TABLET PO SCH (22:13)
[2020-10-01] MEDS: CARVEDILOL 3.125 MG TABLET PO SCH (22:13)
[2020-10-02 01:39] VITALS: BP 118/72
[2020-10-02] MEDS: PIPERACILLIN/TAZO/PMX 4.5GM 100 ML IV SCH ×4 (04:36→22:50)
[2020-10-02] MEDS: OMEPRAZOLE 20 MG CAPSULE.DR PO SCH (06:04)
[2020-10-02] MEDS: METOCLOPRAMIDE 10MG TABLET PO SCH ×4 (07:00→21:00)
[2020-10-02 07:41] VITALS: BP_SYST 118; BP_SYST 125; BP_DIAS 72; BP_DIAS 77
[2020-10-02] MEDS: INSULIN LISPRO 100 UNITS/ML, PEN SQ-INSULIN SCH ×4 (07:45→21:03)
[2020-10-02] MEDS: ONDANSETRON ODT 4 MG PO PRN (07:55)
[2020-10-02] MEDS: metFORMIN 500 MG TABLET PO SCH ×2 (07:55→17:16)
[2020-10-02] MEDS: DORZOLAMIDE LEFTEYE SCH ×2 (09:33→21:04)
[2020-10-02] MEDS: TIMOLOL MALEATE LEFTEYE SCH ×2 (09:33→21:04)
[2020-10-02] MEDS: VANCOMYCIN 1,750 MG in SODIUM CHLORIDE 0.9% 250 ML IV SCH (09:33)
[2020-10-02] MEDS: GABAPENTIN 300 MG CAPSULE PO SCH ×3 (09:34→21:00)
[2020-10-02] MEDS: LACTOBACILLUS CHEW TABLET PO SCH ×3 (09:34→20:59)
[2020-10-02] MEDS: DOCUSATE 100 MG CAPSULE PO SCH ×2 (09:34→21:12)
[2020-10-02 15:29] VITALS: BP 104/64
[2020-10-02] MEDS: ENOXAPARIN 40 MG/0.4 ML SQ SCH (17:19)
[2020-10-02 19:45] VITALS: BP 114/73
[2020-10-02] MEDS: CARVEDILOL 3.125 MG TABLET PO SCH (21:00)
[2020-10-02] MEDS: SENNA/DOCUSATE TABLET PO SCH (21:13)
[2020-10-03 00:35] VITALS: BP 133/75
[2020-10-03] MEDS: PIPERACILLIN/TAZO/PMX 4.5GM 100 ML IV SCH ×3 (04:30→17:50)
[2020-10-03] MEDS: OMEPRAZOLE 20 MG CAPSULE.DR PO SCH (05:49)
[2020-10-03] MEDS: INSULIN LISPRO 100 UNITS/ML, PEN SQ-INSULIN SCH ×4 (07:32→22:19)
[2020-10-03] MEDS: metFORMIN 500 MG TABLET PO SCH ×2 (07:33→17:48)
[2020-10-03] MEDS: METOCLOPRAMIDE 10MG TABLET PO SCH ×4 (07:33→22:05)
[2020-10-03 07:35] VITALS: BP 116/78
[2020-10-03] MEDS ORDERED: SENNA/DOCUSATE TABLET PO PRN (08:00)
[2020-10-03] MEDS: TIMOLOL MALEATE LEFTEYE SCH ×2 (09:00→21:00)
[2020-10-03] MEDS: DORZOLAMIDE LEFTEYE SCH ×2 (09:00→21:00)
[2020-10-03] MEDS: VANCOMYCIN 1,750 MG in SODIUM CHLORIDE 0.9% 250 ML IV SCH (09:26)
[2020-10-03] MEDS: LACTOBACILLUS CHEW TABLET PO SCH ×3 (09:26→22:03)
[2020-10-03] MEDS: GABAPENTIN 300 MG CAPSULE PO SCH ×3 (09:27→22:03)
[2020-10-03 13:48] VITALS: BP 113/69
[2020-10-03] MEDS: FERROUS SULFATE 325 MG TABLET PO SCH (17:48)
[2020-10-03] MEDS: ENOXAPARIN 40 MG/0.4 ML SQ SCH (17:50)
[2020-10-03] MEDS: CARVEDILOL 3.125 MG TABLET PO SCH (22:05)
[2020-10-03 22:06] VITALS: BP 106/72
[2020-10-04] MEDS: PIPERACILLIN/TAZO/PMX 4.5GM 100 ML IV SCH ×4 (00:34→18:36)
[2020-10-04 02:00] VITALS: BP 115/69
[2020-10-04] MEDS: OMEPRAZOLE 20 MG CAPSULE.DR PO SCH (06:09)
[2020-10-04] MEDS: METOCLOPRAMIDE 10MG TABLET PO SCH ×4 (08:25→22:02)
[2020-10-04] MEDS: metFORMIN 500 MG TABLET PO SCH ×2 (08:26→17:05)
[2020-10-04] MEDS: INSULIN LISPRO 100 UNITS/ML, PEN SQ-INSULIN SCH ×4 (08:26→21:00)
[2020-10-04] MEDS: GABAPENTIN 300 MG CAPSULE PO SCH ×3 (08:26→22:02)
[2020-10-04 08:30] VITALS: BP 132/79
[2020-10-04] MEDS: DORZOLAMIDE LEFTEYE SCH ×2 (09:00→21:00)
[2020-10-04] MEDS: TIMOLOL MALEATE LEFTEYE SCH ×2 (09:00→21:00)
[2020-10-04] MEDS: LACTOBACILLUS CHEW TABLET PO SCH ×3 (09:51→22:01)
[2020-10-04] MEDS: VANCOMYCIN 1,750 MG in SODIUM CHLORIDE 0.9% 250 ML IV SCH (09:51)
[2020-10-04 13:57] VITALS: BP 123/74
[2020-10-04] MEDS: ENOXAPARIN 40 MG/0.4 ML SQ SCH (17:45)
[2020-10-04 19:17] VITALS: BP 139/80
[2020-10-04] MEDS: CARVEDILOL 3.125 MG TABLET PO SCH (22:01)
[2020-10-05] MEDS: PIPERACILLIN/TAZO/PMX 4.5GM 100 ML IV SCH ×4 (00:12→18:29)
[2020-10-05 00:52] VITALS: BP 140/82
[2020-10-05] MEDS: OMEPRAZOLE 20 MG CAPSULE.DR PO SCH (05:59)
[2020-10-05 06:38] LABS: ANION GAP 4 mmol/L (5-15); CALCIUM 9.2 mg/dL (8.5-10.1); CHLORIDE 104 mmol/L (98-107); CREATININE 1.09 mg/dL (0.7-1.3)
[2020-10-05] MEDS: METOCLOPRAMIDE 10MG TABLET PO SCH (07:00)
[2020-10-05] MEDS: INSULIN LISPRO 100 UNITS/ML, PEN SQ-INSULIN SCH ×4 (07:00→20:49)
[2020-10-05 07:31] VITALS: BP 148/83
[2020-10-05] MEDS ORDERED: METOCLOPRAMIDE 10MG TABLET PO PRN (08:00)
[2020-10-05] MEDS: metFORMIN 500 MG TABLET PO SCH ×2 (08:03→16:41)
[2020-10-05] MEDS: ONDANSETRON ODT 4 MG PO PRN ×2 (08:03→16:01)
[2020-10-05] MEDS: GABAPENTIN 300 MG CAPSULE PO SCH ×3 (09:51→20:47)
[2020-10-05] MEDS: LACTOBACILLUS CHEW TABLET PO SCH ×3 (09:51→20:47)
[2020-10-05] MEDS: VANCOMYCIN 1,900 MG in SODIUM CHLORIDE 0.9% 250 ML IV SCH (09:51)
[2020-10-05] MEDS: TIMOLOL MALEATE LEFTEYE SCH ×2 (09:56→20:49)
[2020-10-05] MEDS: DORZOLAMIDE LEFTEYE SCH ×2 (09:56→20:49)
[2020-10-05 13:46] VITALS: BP 110/69
[2020-10-05] MEDS: ENOXAPARIN 40 MG/0.4 ML SQ SCH (16:00)
[2020-10-05] MEDS: FERROUS SULFATE 325 MG TABLET PO SCH (16:39)
[2020-10-05] MEDS: ACETAMINOPHEN 325 MG TABLET PO PRN (17:41)
[2020-10-05 20:44] VITALS: BP 133/76
[2020-10-05] MEDS: CARVEDILOL 3.125 MG TABLET PO SCH (20:47)
[2020-10-06] MEDS: PIPERACILLIN/TAZO/PMX 4.5GM 100 ML IV SCH ×4 (00:27→18:26)
[2020-10-06 02:29] VITALS: BP 119/73
[2020-10-06] MEDS: ACETAMINOPHEN 325 MG TABLET PO PRN ×3 (05:10→18:26)
[2020-10-06] MEDS: OMEPRAZOLE 20 MG CAPSULE.DR PO SCH (05:10)
[2020-10-06] MEDS: INSULIN LISPRO 100 UNITS/ML, PEN SQ-INSULIN SCH ×4 (07:00→20:27)
[2020-10-06 08:51] VITALS: BP 119/79
[2020-10-06] MEDS: metFORMIN 500 MG TABLET PO SCH ×2 (08:54→16:21)
[2020-10-06] MEDS: GABAPENTIN 300 MG CAPSULE PO SCH ×3 (08:54→20:27)
[2020-10-06] MEDS: LACTOBACILLUS CHEW TABLET PO SCH ×3 (08:54→20:27)
[2020-10-06] MEDS: VANCOMYCIN 1,900 MG in SODIUM CHLORIDE 0.9% 250 ML IV SCH (08:54)
[2020-10-06] MEDS: ALUMINUM/MAG/SIMETHICONE 30 ML UDC PO PRN (11:38)
[2020-10-06 14:00] VITALS: BP 103/64
[2020-10-06] MEDS: ENOXAPARIN 40 MG/0.4 ML SQ SCH (16:25)
[2020-10-06 20:22] VITALS: BP 106/72
[2020-10-06] MEDS: CARVEDILOL 3.125 MG TABLET PO SCH (20:27)
[2020-10-07] MEDS: ACETAMINOPHEN 325 MG TABLET PO PRN (00:23)
[2020-10-07] MEDS: PIPERACILLIN/TAZO/PMX 4.5GM 100 ML IV SCH ×4 (00:23→20:56)
[2020-10-07 02:18] VITALS: BP 104/71
[2020-10-07] MEDS: OMEPRAZOLE 20 MG CAPSULE.DR PO SCH (06:01)
[2020-10-07] MEDS: INSULIN LISPRO 100 UNITS/ML, PEN SQ-INSULIN SCH ×4 (07:00→21:00)
[2020-10-07] MEDS: GABAPENTIN 300 MG CAPSULE PO SCH ×3 (09:07→20:55)
[2020-10-07] MEDS: LACTOBACILLUS CHEW TABLET PO SCH ×3 (09:08→20:55)
[2020-10-07] MEDS: ENOXAPARIN 40 MG/0.4 ML SQ SCH (09:08)
[2020-10-07] MEDS: metFORMIN 500 MG TABLET PO SCH ×2 (09:08→17:00)
[2020-10-07 09:50] VITALS: BP 96/61
[2020-10-07] MEDS: VANCOMYCIN 1,900 MG in SODIUM CHLORIDE 0.9% 250 ML IV SCH (11:22)
[2020-10-07 15:59] VITALS: BP 109/72
[2020-10-07] MEDS: FERROUS SULFATE 325 MG TABLET PO SCH (16:59)
[2020-10-07 20:27] VITALS: BP 100/65
[2020-10-07] MEDS: CARVEDILOL 3.125 MG TABLET PO SCH (20:55)
[2020-10-08 01:37] VITALS: BP 96/61
[2020-10-08] MEDS: PIPERACILLIN/TAZO/PMX 4.5GM 100 ML IV SCH ×4 (01:49→22:00)
[2020-10-08] MEDS: ACETAMINOPHEN 325 MG TABLET PO PRN ×3 (01:49→20:33)
[2020-10-08 04:45] LABS: BASOPHILS % (AUTO) 1 % (0-1); EOSINOPHILS % (AUTO) 12 % (1-7); LYMPHOCYTES % (AUTO) 29 % (22-44); MEAN CORPUSCULAR HEMOGLOBIN 29.6 pg (27.5-34.5); MEAN CORPUSCULAR HGB CONC 33.3 g/dL (33.2-36.2); MEAN PLATELET VOLUME 7.3 fL (7.4-10.4); MONOCYTES % (AUTO) 8 % (2-9); NEUTROPHILS % (AUTO) 50 % (42-75); PLATELET COUNT 308 x10^3/uL (130-400); RED BLOOD COUNT 3.42 x10^6/uL (4.38-5.82); RED CELL DISTRIBUTION WIDTH 15.9 % (9.4-14.8)
[2020-10-08 04:50] LABS: HCT (SEDRATE) 30.7 % (39.2-51.8)
[2020-10-08 04:51] LABS: MD NO
[2020-10-08] MEDS: OMEPRAZOLE 20 MG CAPSULE.DR PO SCH (04:51)
[2020-10-08] MEDS: ONDANSETRON 2MG/ML, 2ML IVPush PRN (04:51)
[2020-10-08 04:55] LABS: ALANINE AMINOTRANSFERASE 60 U/L (12-78); ALBUMIN 2.8 g/dL (3.4-5.0); ANION GAP 2 mmol/L (5-15); C-REACTIVE PROTEIN, QUANT 0.25 mg/dL (0.02-0.49); CALCIUM 9.7 mg/dL (8.5-10.1); CHLORIDE 103 mmol/L (98-107); CREATININE 1.51 mg/dL (0.7-1.3)
[2020-10-08 04:57] LABS: ALKALINE PHOSPHATASE 115 U/L (45-117); BILIRUBIN,TOTAL 0.2 mg/dL (0.2-1.0); TOTAL PROTEIN 7.4 g/dL (6.4-8.2)
[2020-10-08 06:34] VITALS: BP 115/75
[2020-10-08] MEDS: SODIUM CHLORIDE 0.9% 1,000 ML IV SCH (08:09)
[2020-10-08] MEDS: INSULIN LISPRO 100 UNITS/ML, PEN SQ-INSULIN SCH ×4 (08:10→20:43)
[2020-10-08] MEDS: metFORMIN 500 MG TABLET PO SCH ×2 (08:10→17:22)
[2020-10-08] MEDS: GABAPENTIN 300 MG CAPSULE PO SCH ×3 (08:10→20:33)
[2020-10-08] MEDS: LACTOBACILLUS CHEW TABLET PO SCH ×3 (08:11→20:33)
[2020-10-08] MEDS: LINEZOLID 600 MG TABLET PO SCH (12:03)
[2020-10-08 12:04] VITALS: BP 109/69
[2020-10-08] MEDS: ENOXAPARIN 40 MG/0.4 ML SQ SCH (16:00)
[2020-10-08 19:45] VITALS: BP 114/74
[2020-10-08] MEDS: SENNA/DOCUSATE TABLET PO SCH (20:34)
[2020-10-08] MEDS: CARVEDILOL 3.125 MG TABLET PO SCH (20:34)
[2020-10-09] MEDS: LINEZOLID 600 MG TABLET PO SCH ×3 (00:52→23:25)
[2020-10-09 02:16] VITALS: BP 125/77
[2020-10-09 04:34] LABS: ANION GAP 2 mmol/L (5-15); CALCIUM 9.4 mg/dL (8.5-10.1); CHLORIDE 104 mmol/L (98-107); CREATININE 1.38 mg/dL (0.7-1.3)
[2020-10-09] MEDS: OMEPRAZOLE 20 MG CAPSULE.DR PO SCH (05:10)
[2020-10-09] MEDS: PIPERACILLIN/TAZO/PMX 4.5GM 100 ML IV SCH ×3 (05:10→22:00)
[2020-10-09] MEDS: ONDANSETRON ODT 4 MG PO PRN (05:15)
[2020-10-09] MEDS: INSULIN LISPRO 100 UNITS/ML, PEN SQ-INSULIN SCH ×4 (07:00→21:00)
[2020-10-09 07:08] VITALS: BP 121/77
[2020-10-09] MEDS: metFORMIN 500 MG TABLET PO SCH ×2 (07:31→16:52)
[2020-10-09] MEDS: SODIUM CHLORIDE 0.9% 1,000 ML IV SCH (07:35)
[2020-10-09] MEDS: ACETAMINOPHEN 325 MG TABLET PO PRN ×2 (07:46→23:28)
[2020-10-09] MEDS: LACTOBACILLUS CHEW TABLET PO SCH ×3 (09:59→21:15)
[2020-10-09] MEDS: GABAPENTIN 300 MG CAPSULE PO SCH ×3 (09:59→21:15)
[2020-10-09 13:46] VITALS: BP 102/65
[2020-10-09] MEDS: FERROUS SULFATE 325 MG TABLET PO SCH (16:52)
[2020-10-09] MEDS: ENOXAPARIN 40 MG/0.4 ML SQ SCH (16:53)
[2020-10-09] MEDS: ONDANSETRON 2MG/ML, 2ML IVPush PRN (17:04)
[2020-10-09 19:33] VITALS: BP 97/68
[2020-10-09] MEDS: SENNA/DOCUSATE TABLET PO SCH (21:00)
[2020-10-09 21:14] VITALS: BP 119/79
[2020-10-09] MEDS: CARVEDILOL 3.125 MG TABLET PO SCH (21:15)
[2020-10-10 00:52] VITALS: BP 146/87
[2020-10-10] MEDS: PIPERACILLIN/TAZO/PMX 4.5GM 100 ML IV SCH ×3 (05:46→21:56)
[2020-10-10] MEDS: OMEPRAZOLE 20 MG CAPSULE.DR PO SCH (05:46)
[2020-10-10] MEDS: INSULIN LISPRO 100 UNITS/ML, PEN SQ-INSULIN SCH ×4 (07:00→21:53)
[2020-10-10 07:07] VITALS: BP 122/80
[2020-10-10] MEDS: GABAPENTIN 300 MG CAPSULE PO SCH ×3 (07:58→21:48)
[2020-10-10] MEDS: metFORMIN 500 MG TABLET PO SCH ×2 (07:58→16:26)
[2020-10-10] MEDS: LACTOBACILLUS CHEW TABLET PO SCH ×3 (07:58→21:47)
[2020-10-10] MEDS: ONDANSETRON 2MG/ML, 2ML IVPush PRN (08:17)
[2020-10-10] MEDS: SODIUM CHLORIDE 0.9% 1,000 ML IV SCH (09:00)
[2020-10-10 10:52] LABS: ANION GAP 5 mmol/L (5-15); CALCIUM 9.5 mg/dL (8.5-10.1); CHLORIDE 104 mmol/L (98-107)
[2020-10-10 10:53] LABS: CREATININE 1.41 mg/dL (0.7-1.3)
[2020-10-10] MEDS: LINEZOLID 600 MG TABLET PO SCH ×2 (11:12→23:30)
[2020-10-10 12:01] VITALS: BP 121/77
[2020-10-10] MEDS: ENOXAPARIN 40 MG/0.4 ML SQ SCH (16:00)
[2020-10-10 18:56] VITALS: BP 126/80
[2020-10-10] MEDS: CARVEDILOL 3.125 MG TABLET PO SCH (21:47)
[2020-10-10] MEDS: SENNA/DOCUSATE TABLET PO SCH (21:48)
[2020-10-10] MEDS ORDERED: CATHFLO-ALTEPLASE 2 MG/2 ML CATHFLUSH ONE (22:00)
[2020-10-10] MEDS: ACETAMINOPHEN 325 MG TABLET PO PRN (23:37)
[2020-10-11] MEDS: SODIUM CHLORIDE 0.9% 1,000 ML IV SCH (02:00)
[2020-10-11 02:25] VITALS: BP 124/76
[2020-10-11] MEDS: PIPERACILLIN/TAZO/PMX 4.5GM 100 ML IV SCH ×3 (05:32→22:15)
[2020-10-11] MEDS: OMEPRAZOLE 20 MG CAPSULE.DR PO SCH (05:32)
[2020-10-11] MEDS: ONDANSETRON 2MG/ML, 2ML IVPush PRN (05:48)
[2020-10-11 06:07] LABS: BASOPHILS % (AUTO) 1 % (0-1); EOSINOPHILS % (AUTO) 14 % (1-7); LYMPHOCYTES % (AUTO) 29 % (22-44); MEAN CORPUSCULAR HEMOGLOBIN 30.1 pg (27.5-34.5); MEAN PLATELET VOLUME 7.3 fL (7.4-10.4); MONOCYTES % (AUTO) 6 % (2-9); NEUTROPHILS % (AUTO) 49 % (42-75); PLATELET COUNT 332 x10^3/uL (130-400); RED BLOOD COUNT 3.55 x10^6/uL (4.38-5.82); RED CELL DISTRIBUTION WIDTH 15.5 % (9.4-14.8)
[2020-10-11 06:08] LABS: MD NO
[2020-10-11 06:20] LABS: ANION GAP 5 mmol/L (5-15); CALCIUM 9.4 mg/dL (8.5-10.1); CHLORIDE 105 mmol/L (98-107)
[2020-10-11 07:20] VITALS: BP 142/88
[2020-10-11] MEDS: INSULIN LISPRO 100 UNITS/ML, PEN SQ-INSULIN SCH ×4 (08:58→20:20)
[2020-10-11] MEDS: LACTOBACILLUS CHEW TABLET PO SCH ×3 (09:15→20:20)
[2020-10-11] MEDS: GABAPENTIN 300 MG CAPSULE PO SCH ×3 (09:15→20:20)
[2020-10-11] MEDS: metFORMIN 500 MG TABLET PO SCH ×2 (09:15→15:52)
[2020-10-11] MEDS: LINEZOLID 600 MG TABLET PO SCH ×2 (11:56→23:27)
[2020-10-11 13:57] VITALS: BP 121/83
[2020-10-11] MEDS: ENOXAPARIN 40 MG/0.4 ML SQ SCH (15:53)
[2020-10-11] MEDS: FERROUS SULFATE 325 MG TABLET PO SCH (15:53)
[2020-10-11 18:56] VITALS: BP 143/81
[2020-10-11] MEDS: CARVEDILOL 3.125 MG TABLET PO SCH (20:20)
[2020-10-11] MEDS: SENNA/DOCUSATE TABLET PO SCH (20:20)
[2020-10-12 00:22] VITALS: BP 122/77
[2020-10-12] MEDS: OMEPRAZOLE 20 MG CAPSULE.DR PO SCH (06:04)
[2020-10-12] MEDS: PIPERACILLIN/TAZO/PMX 4.5GM 100 ML IV SCH ×3 (06:05→20:59)
[2020-10-12] MEDS: INSULIN LISPRO 100 UNITS/ML, PEN SQ-INSULIN SCH ×4 (07:38→20:59)
[2020-10-12] MEDS: ONDANSETRON 2MG/ML, 2ML IVPush PRN (07:44)
[2020-10-12] MEDS: LACTOBACILLUS CHEW TABLET PO SCH ×3 (07:45→21:00)
[2020-10-12] MEDS: metFORMIN 500 MG TABLET PO SCH ×2 (07:45→16:07)
[2020-10-12] MEDS: GABAPENTIN 300 MG CAPSULE PO SCH ×3 (07:45→21:00)
[2020-10-12 10:01] VITALS: BP 124/74
[2020-10-12] MEDS: LINEZOLID 600 MG TABLET PO SCH ×2 (12:01→23:37)
[2020-10-12 13:27] VITALS: BP 133/85
[2020-10-12] MEDS: ENOXAPARIN 40 MG/0.4 ML SQ SCH (16:07)
[2020-10-12 19:18] VITALS: BP 133/77
[2020-10-12] MEDS: CARVEDILOL 3.125 MG TABLET PO SCH (21:00)
[2020-10-12] MEDS: SENNA/DOCUSATE TABLET PO SCH (21:00)
[2020-10-12] MEDS: ACETAMINOPHEN 325 MG TABLET PO PRN (21:50)
[2020-10-13] VITALS: BP 124/78
[2020-10-13] MEDS: OMEPRAZOLE 20 MG CAPSULE.DR PO SCH (05:16)
[2020-10-13] MEDS: PIPERACILLIN/TAZO/PMX 4.5GM 100 ML IV SCH ×3 (05:16→21:54)
[2020-10-13] MEDS: ONDANSETRON 2MG/ML, 2ML IVPush PRN (05:21)
[2020-10-13 05:52] LABS: ANION GAP 3 mmol/L (5-15); CALCIUM 9.6 mg/dL (8.5-10.1); CHLORIDE 105 mmol/L (98-107); CREATININE 1.27 mg/dL (0.7-1.3)
[2020-10-13] MEDS: INSULIN LISPRO 100 UNITS/ML, PEN SQ-INSULIN SCH ×4 (07:00→21:00)
[2020-10-13 07:10] VITALS: BP 123/79
[2020-10-13] MEDS: metFORMIN 850 MG TABLET PO SCH ×2 (07:42→16:08)
[2020-10-13] MEDS: LACTOBACILLUS CHEW TABLET PO SCH ×3 (07:42→21:39)
[2020-10-13] MEDS: GABAPENTIN 300 MG CAPSULE PO SCH ×3 (07:42→21:38)
[2020-10-13] MEDS: ALUMINUM/MAG/SIMETHICONE 30 ML UDC PO PRN (07:49)
[2020-10-13] MEDS: ACETAMINOPHEN 325 MG TABLET PO PRN ×2 (08:16→21:39)
[2020-10-13] MEDS: LINEZOLID 600 MG TABLET PO SCH ×2 (10:51→23:59)
[2020-10-13 12:51] VITALS: BP 127/83
[2020-10-13] MEDS: FERROUS SULFATE 325 MG TABLET PO SCH (16:08)
[2020-10-13] MEDS: ENOXAPARIN 40 MG/0.4 ML SQ SCH (16:12)
[2020-10-13 19:58] VITALS: BP 127/82
[2020-10-13] MEDS: SENNA/DOCUSATE TABLET PO SCH (21:39)
[2020-10-13] MEDS: CARVEDILOL 3.125 MG TABLET PO SCH (21:39)
[2020-10-14 02:28] VITALS: BP 127/83
[2020-10-14] MEDS: PIPERACILLIN/TAZO/PMX 4.5GM 100 ML IV SCH ×3 (05:44→21:39)
[2020-10-14] MEDS: OMEPRAZOLE 20 MG CAPSULE.DR PO SCH ×2 (06:02→17:29)
[2020-10-14 06:54] VITALS: BP 131/85
[2020-10-14] MEDS: INSULIN LISPRO 100 UNITS/ML, PEN SQ-INSULIN SCH ×4 (07:00→21:00)
[2020-10-14] MEDS: metFORMIN 850 MG TABLET PO SCH ×2 (08:06→16:10)
[2020-10-14] MEDS: GABAPENTIN 300 MG CAPSULE PO SCH ×3 (08:06→21:38)
[2020-10-14] MEDS: LACTOBACILLUS CHEW TABLET PO SCH ×3 (08:07→21:39)
[2020-10-14] MEDS: LINEZOLID 600 MG TABLET PO SCH ×2 (11:53→22:48)
[2020-10-14] MEDS: METOCLOPRAMIDE 5 MG/ML, 2ML IVPush SCH ×2 (12:56→16:10)
[2020-10-14 14:25] VITALS: BP 113/75
[2020-10-14] MEDS: ACETAMINOPHEN 325 MG TABLET PO PRN (16:09)
[2020-10-14] MEDS: ENOXAPARIN 40 MG/0.4 ML SQ SCH (16:22)
[2020-10-14 20:12] VITALS: BP 112/75
[2020-10-14] MEDS: SENNA/DOCUSATE TABLET PO SCH (21:00)
[2020-10-14] MEDS: CARVEDILOL 3.125 MG TABLET PO SCH (21:38)
[2020-10-14] MEDS: metFORMIN 500 MG TABLET PO SCH (21:39)
[2020-10-14] MEDS: OXYcodone IR 5MG TABLET PO PRN (22:49)
[2020-10-15 00:53] VITALS: BP 155/89
[2020-10-15] MEDS: PIPERACILLIN/TAZO/PMX 4.5GM 100 ML IV SCH ×3 (05:37→22:30)
[2020-10-15] MEDS: OMEPRAZOLE 20 MG CAPSULE.DR PO SCH ×2 (05:37→17:34)
[2020-10-15 05:47] LABS: HCT (SEDRATE) 31.1 % (39.2-51.8)
[2020-10-15 05:55] LABS: ANION GAP 11 mmol/L (5-15); CALCIUM 9.6 mg/dL (8.5-10.1); CHLORIDE 104 mmol/L (98-107)
[2020-10-15 05:58] LABS: MEAN CORPUSCULAR HEMOGLOBIN 30.4 pg (27.5-34.5); MEAN PLATELET VOLUME 7.7 fL (7.4-10.4); PLATELET COUNT 292 x10^3/uL (130-400); RED BLOOD COUNT 3.55 x10^6/uL (4.38-5.82); RED CELL DISTRIBUTION WIDTH 15.3 % (9.4-14.8)
[2020-10-15 05:59] LABS: ALANINE AMINOTRANSFERASE 95 U/L (12-78); ALKALINE PHOSPHATASE 104 U/L (45-117); BILIRUBIN,TOTAL 0.3 mg/dL (0.2-1.0); CREATININE 1.27 mg/dL (0.7-1.3); TOTAL PROTEIN 7.7 g/dL (6.4-8.2)
[2020-10-15 06:50] LABS: BAND#(MANUAL) 0.07 x10^3/uL; BANDS%(MANUAL) 1 % (0-7); MD YES; SEG#(MANUAL) 2.73 x10^3/uL (1.8-6.8); SEGS% (MANUAL) 42 % (42-75)
[2020-10-15 06:51] LABS: <PLATELET ESTIMATE> ADEQUATE; <PLT MORPHOLOGY> NORMAL PLT MORPH; <RBC MORPHOLOGY> NORMAL; BASOS#(MANUAL) 0.07 x10^3/uL (0-0.1); BASOS% (MANUAL) 1 % (0-1); EOS% (MANUAL) 20 % (1-7); LYMPH#(MANUAL) 2.21 x10^3/uL (1-3.4); LYMPHS% (MANUAL) 34 % (22-44); MONOS#(MANUAL) 0.13 x10^3/uL (0.3-2.7); MONOS% (MANUAL) 2 % (2-9)
[2020-10-15] MEDS: INSULIN LISPRO 100 UNITS/ML, PEN SQ-INSULIN SCH ×4 (07:00→22:42)
[2020-10-15 07:20] VITALS: BP 120/77
[2020-10-15] MEDS: metFORMIN 500 MG TABLET PO SCH ×3 (08:03→22:29)
[2020-10-15] MEDS: LACTOBACILLUS CHEW TABLET PO SCH ×3 (08:03→22:30)
[2020-10-15] MEDS: GABAPENTIN 300 MG CAPSULE PO SCH ×3 (08:03→22:30)
[2020-10-15] MEDS: METOCLOPRAMIDE 5 MG/ML, 2ML IVPush SCH ×3 (08:04→16:00)
[2020-10-15] MEDS: LINEZOLID 600 MG TABLET PO SCH (11:30)
[2020-10-15 12:26] VITALS: BP 124/81
[2020-10-15] MEDS: OXYcodone IR 5MG TABLET PO PRN (13:47)
[2020-10-15] MEDS: ENOXAPARIN 40 MG/0.4 ML SQ SCH (16:32)
[2020-10-15] MEDS: DAPTOMYCIN 400 MG in SODIUM CHLORIDE 0.9% 100 ML IVPB SCH (17:34)
[2020-10-15 20:40] VITALS: BP 143/82
[2020-10-15] MEDS: CARVEDILOL 3.125 MG TABLET PO SCH (22:30)
[2020-10-15] MEDS: SENNA/DOCUSATE TABLET PO SCH (22:30)
[2020-10-15] MEDS: ACETAMINOPHEN 325 MG TABLET PO PRN (22:30)
[2020-10-16 01:53] VITALS: BP 129/26
[2020-10-16] MEDS: OMEPRAZOLE 20 MG CAPSULE.DR PO SCH ×2 (06:25→17:41)
[2020-10-16] MEDS: PIPERACILLIN/TAZO/PMX 4.5GM 100 ML IV SCH ×3 (06:25→22:09)
[2020-10-16 07:36] VITALS: BP 126/80
[2020-10-16] MEDS: INSULIN LISPRO 100 UNITS/ML, PEN SQ-INSULIN SCH ×4 (07:52→21:00)
[2020-10-16] MEDS: OXYcodone IR 5MG TABLET PO PRN (08:06)
[2020-10-16] MEDS: metFORMIN 500 MG TABLET PO SCH ×3 (08:06→22:09)
[2020-10-16] MEDS: METOCLOPRAMIDE 5 MG/ML, 2ML IVPush SCH ×3 (08:06→16:24)
[2020-10-16] MEDS: LACTOBACILLUS CHEW TABLET PO SCH ×3 (08:07→22:09)
[2020-10-16] MEDS: GABAPENTIN 300 MG CAPSULE PO SCH ×3 (08:07→22:09)
[2020-10-16 12:53] VITALS: BP 110/70
[2020-10-16] MEDS: DAPTOMYCIN 400 MG in SODIUM CHLORIDE 0.9% 100 ML IVPB SCH (16:24)
[2020-10-16] MEDS: ENOXAPARIN 40 MG/0.4 ML SQ SCH (16:25)
[2020-10-16] MEDS ORDERED: METOCLOPRAMIDE 5 MG/ML, 2ML IVPush PRN (17:00)
[2020-10-16 19:54] VITALS: BP 118/75
[2020-10-16] MEDS: SENNA/DOCUSATE TABLET PO SCH (21:00)
[2020-10-16] MEDS: CARVEDILOL 3.125 MG TABLET PO SCH (22:09)
[2020-10-16] MEDS: ACETAMINOPHEN 325 MG TABLET PO PRN (22:15)
[2020-10-17 00:48] VITALS: BP 145/87
[2020-10-17] MEDS: PIPERACILLIN/TAZO/PMX 4.5GM 100 ML IV SCH ×3 (06:09→22:25)
[2020-10-17] MEDS: OMEPRAZOLE 20 MG CAPSULE.DR PO SCH ×2 (06:09→17:30)
[2020-10-17] MEDS: INSULIN LISPRO 100 UNITS/ML, PEN SQ-INSULIN SCH ×4 (07:00→21:00)
[2020-10-17 07:31] VITALS: BP 131/83
[2020-10-17] MEDS: GABAPENTIN 300 MG CAPSULE PO SCH ×3 (09:43→22:24)
[2020-10-17] MEDS: LACTOBACILLUS CHEW TABLET PO SCH ×3 (09:43→22:24)
[2020-10-17] MEDS: metFORMIN 500 MG TABLET PO SCH ×2 (09:44→17:30)
[2020-10-17] MEDS: ACETAMINOPHEN 325 MG TABLET PO PRN ×2 (09:44→22:25)
[2020-10-17 14:07] VITALS: BP 104/70
[2020-10-17] MEDS: ONDANSETRON ODT 4 MG PO PRN ×2 (14:23→22:24)
[2020-10-17] MEDS: ENOXAPARIN 40 MG/0.4 ML SQ SCH (17:30)
[2020-10-17] MEDS: DAPTOMYCIN 400 MG in SODIUM CHLORIDE 0.9% 100 ML IVPB SCH (17:31)
[2020-10-17] MEDS: SENNA/DOCUSATE TABLET PO SCH (21:00)
[2020-10-17 21:02] VITALS: BP 116/76
[2020-10-17] MEDS: CARVEDILOL 3.125 MG TABLET PO SCH (22:25)
[2020-10-18 03:33] VITALS: BP 130/79
[2020-10-18] MEDS: PIPERACILLIN/TAZO/PMX 4.5GM 100 ML IV SCH ×3 (05:57→22:43)
[2020-10-18] MEDS: OMEPRAZOLE 20 MG CAPSULE.DR PO SCH ×2 (05:57→17:54)
[2020-10-18] MEDS: ONDANSETRON ODT 4 MG PO PRN (06:00)
[2020-10-18] MEDS: INSULIN LISPRO 100 UNITS/ML, PEN SQ-INSULIN SCH ×4 (07:00→21:00)
[2020-10-18 08:37] VITALS: BP 124/84
[2020-10-18] MEDS: metFORMIN 500 MG TABLET PO SCH ×4 (09:40→22:22)
[2020-10-18] MEDS: LACTOBACILLUS CHEW TABLET PO SCH ×3 (09:40→22:22)
[2020-10-18] MEDS: GABAPENTIN 300 MG CAPSULE PO SCH ×3 (09:40→22:22)
[2020-10-18 15:59] VITALS: BP 100/67
[2020-10-18] MEDS: ENOXAPARIN 40 MG/0.4 ML SQ SCH (16:02)
[2020-10-18] MEDS: DAPTOMYCIN 400 MG in SODIUM CHLORIDE 0.9% 100 ML IVPB SCH (17:53)
[2020-10-18 21:42] VITALS: BP 105/72
[2020-10-18] MEDS: OXYcodone IR 5MG TABLET PO PRN (22:22)
[2020-10-18] MEDS: SENNA/DOCUSATE TABLET PO SCH (22:22)
[2020-10-18] MEDS: CARVEDILOL 3.125 MG TABLET PO SCH (22:22)
[2020-10-19 01:36] VITALS: BP 111/76
[2020-10-19] MEDS: OMEPRAZOLE 20 MG CAPSULE.DR PO SCH ×2 (05:34→17:47)
[2020-10-19] MEDS: PIPERACILLIN/TAZO/PMX 4.5GM 100 ML IV SCH ×3 (05:34→22:10)
[2020-10-19] MEDS: ONDANSETRON 2MG/ML, 2ML IVPush PRN (05:40)
[2020-10-19] MEDS: INSULIN LISPRO 100 UNITS/ML, PEN SQ-INSULIN SCH ×4 (07:00→22:11)
[2020-10-19] MEDS: GABAPENTIN 300 MG CAPSULE PO SCH ×3 (07:44→20:20)
[2020-10-19] MEDS: metFORMIN 500 MG TABLET PO SCH ×2 (07:44→20:20)
[2020-10-19] MEDS: LACTOBACILLUS CHEW TABLET PO SCH ×3 (07:44→20:20)
[2020-10-19 09:23] VITALS: BP 114/78
[2020-10-19] MEDS: OXYcodone IR 5MG TABLET PO PRN ×2 (11:50→20:21)
[2020-10-19] MEDS: metFORMIN 850 MG TABLET PO SCH (11:50)
[2020-10-19 12:51] VITALS: BP 101/69
[2020-10-19] MEDS: ENOXAPARIN 40 MG/0.4 ML SQ SCH (16:00)
[2020-10-19] MEDS: DAPTOMYCIN 400 MG in SODIUM CHLORIDE 0.9% 100 ML IVPB SCH (17:45)
[2020-10-19 19:38] VITALS: BP 125/83
[2020-10-19] MEDS: CARVEDILOL 3.125 MG TABLET PO SCH (20:20)
[2020-10-19] MEDS: SENNA/DOCUSATE TABLET PO SCH (20:21)
[2020-10-20 01:16] VITALS: BP 117/74
[2020-10-20] MEDS: OMEPRAZOLE 20 MG CAPSULE.DR PO SCH ×2 (05:26→17:46)
[2020-10-20] MEDS: PIPERACILLIN/TAZO/PMX 4.5GM 100 ML IV SCH ×3 (05:27→22:17)
[2020-10-20 07:35] VITALS: BP 123/85
[2020-10-20] MEDS: INSULIN LISPRO 100 UNITS/ML, PEN SQ-INSULIN SCH ×4 (07:47→20:17)
[2020-10-20] MEDS: metFORMIN 500 MG TABLET PO SCH ×2 (07:47→20:27)
[2020-10-20] MEDS: GABAPENTIN 300 MG CAPSULE PO SCH ×3 (07:47→20:27)
[2020-10-20] MEDS: LACTOBACILLUS CHEW TABLET PO SCH ×3 (07:47→20:26)
[2020-10-20] MEDS: ONDANSETRON 2MG/ML, 2ML IVPush PRN (08:33)
[2020-10-20] MEDS: metFORMIN 850 MG TABLET PO SCH (11:17)
[2020-10-20 13:58] VITALS: BP 103/69
[2020-10-20] MEDS: ENOXAPARIN 40 MG/0.4 ML SQ SCH (16:19)
[2020-10-20] MEDS: DAPTOMYCIN 400 MG in SODIUM CHLORIDE 0.9% 100 ML IVPB SCH (17:46)
[2020-10-20] MEDS: SENNA/DOCUSATE TABLET PO SCH (20:26)
[2020-10-20] MEDS: OXYcodone IR 5MG TABLET PO PRN (20:27)
[2020-10-20] MEDS: CARVEDILOL 3.125 MG TABLET PO SCH (20:27)
[2020-10-20 20:29] VITALS: BP 114/79
[2020-10-21 02:15] VITALS: BP 114/75
[2020-10-21 04:23] LABS: CREATININE 1.21 mg/dL (0.7-1.3)
[2020-10-21] MEDS: PIPERACILLIN/TAZO/PMX 4.5GM 100 ML IV SCH ×3 (05:55→21:48)
[2020-10-21] MEDS: OMEPRAZOLE 20 MG CAPSULE.DR PO SCH ×2 (05:59→16:47)
[2020-10-21 06:43] VITALS: BP 109/72
[2020-10-21] MEDS: INSULIN LISPRO 100 UNITS/ML, PEN SQ-INSULIN SCH ×4 (07:00→21:00)
[2020-10-21] MEDS: ONDANSETRON 2MG/ML, 2ML IVPush PRN (07:09)
[2020-10-21] MEDS: ACETAMINOPHEN 325 MG TABLET PO PRN ×2 (09:48→16:48)
[2020-10-21] MEDS: LACTOBACILLUS CHEW TABLET PO SCH ×3 (10:29→21:47)
[2020-10-21] MEDS: GABAPENTIN 300 MG CAPSULE PO SCH ×3 (10:29→21:48)
[2020-10-21] MEDS: metFORMIN 500 MG TABLET PO SCH ×2 (10:34→21:48)
[2020-10-21] MEDS: metFORMIN 850 MG TABLET PO SCH (12:06)
[2020-10-21 13:34] VITALS: BP 112/77
[2020-10-21] MEDS: ENOXAPARIN 40 MG/0.4 ML SQ SCH (16:00)
[2020-10-21] MEDS: DAPTOMYCIN 400 MG in SODIUM CHLORIDE 0.9% 100 ML IVPB SCH (16:47)
[2020-10-21 20:41] VITALS: BP 103/70
[2020-10-21] MEDS: SENNA/DOCUSATE TABLET PO SCH (21:47)
[2020-10-21] MEDS: CARVEDILOL 3.125 MG TABLET PO SCH (21:47)
[2020-10-22 02:03] VITALS: BP 126/79
[2020-10-22 04:13] LABS: HCT (SEDRATE) 30.1 % (39.2-51.8)
[2020-10-22 04:15] LABS: BASOPHILS % (AUTO) 1 % (0-1); EOSINOPHILS % (AUTO) 24 % (1-7); LYMPHOCYTES % (AUTO) 20 % (22-44); MEAN CORPUSCULAR HEMOGLOBIN 30.8 pg (27.5-34.5); MEAN PLATELET VOLUME 7.5 fL (7.4-10.4); MONOCYTES % (AUTO) 8 % (2-9); NEUTROPHILS % (AUTO) 48 % (42-75); PLATELET COUNT 210 x10^3/uL (130-400); RED BLOOD COUNT 3.33 x10^6/uL (4.38-5.82)
[2020-10-22 04:24] LABS: ALBUMIN 2.8 g/dL (3.4-5.0); ANION GAP 4 mmol/L (5-15); CALCIUM 9.3 mg/dL (8.5-10.1); CHLORIDE 104 mmol/L (98-107)
[2020-10-22 04:29] LABS: ALANINE AMINOTRANSFERASE 170 U/L (12-78); ALKALINE PHOSPHATASE 138 U/L (45-117); BILIRUBIN,TOTAL 0.2 mg/dL (0.2-1.0); C-REACTIVE PROTEIN, QUANT 0.75 mg/dL (0.02-0.49); CREATINE KINASE, TOTAL 25 U/L (39-308); CREATININE 1.21 mg/dL (0.7-1.3); TOTAL PROTEIN 7.2 g/dL (6.4-8.2)
[2020-10-22 05:46] LABS: MD SCAN
[2020-10-22] MEDS: PIPERACILLIN/TAZO/PMX 4.5GM 100 ML IV SCH (06:07)
[2020-10-22] MEDS: ACETAMINOPHEN 325 MG TABLET PO PRN ×3 (06:07→23:39)
[2020-10-22] MEDS: OMEPRAZOLE 20 MG CAPSULE.DR PO SCH ×2 (06:09→18:28)
[2020-10-22 07:01] VITALS: BP 119/76
[2020-10-22] MEDS: INSULIN LISPRO 100 UNITS/ML, PEN SQ-INSULIN SCH ×4 (07:30→21:00)
[2020-10-22] MEDS: LACTOBACILLUS CHEW TABLET PO SCH ×3 (09:34→23:34)
[2020-10-22] MEDS: metFORMIN 500 MG TABLET PO SCH ×2 (09:35→23:34)
[2020-10-22] MEDS: GABAPENTIN 300 MG CAPSULE PO SCH ×3 (09:35→23:33)
[2020-10-22] MEDS: ONDANSETRON ODT 4 MG PO PRN (10:59)
[2020-10-22] MEDS: CIPROFLOXACIN 500 MG TABLET PO SCH ×2 (10:59→23:34)
[2020-10-22] MEDS: metFORMIN 850 MG TABLET PO SCH (11:08)
[2020-10-22 14:30] VITALS: BP 143/88
[2020-10-22] MEDS: ENOXAPARIN 40 MG/0.4 ML SQ SCH (17:22)
[2020-10-22] MEDS: DAPTOMYCIN 400 MG in SODIUM CHLORIDE 0.9% 100 ML IVPB SCH (18:19)
[2020-10-22 20:33] VITALS: BP 128/84
[2020-10-22 23:32] VITALS: BP 117/76
[2020-10-22] MEDS: SENNA/DOCUSATE TABLET PO SCH (23:33)
[2020-10-22] MEDS: CARVEDILOL 3.125 MG TABLET PO SCH (23:34)
[2020-10-23 02:04] VITALS: BP 123/77
[2020-10-23] MEDS: OMEPRAZOLE 20 MG CAPSULE.DR PO SCH ×2 (06:12→16:35)
[2020-10-23 06:43] LABS: ALANINE AMINOTRANSFERASE 212 U/L (12-78); ALBUMIN 2.9 g/dL (3.4-5.0); ANION GAP 4 mmol/L (5-15); CALCIUM 9.2 mg/dL (8.5-10.1); CHLORIDE 103 mmol/L (98-107); CREATININE 1.13 mg/dL (0.7-1.3)
[2020-10-23 06:46] LABS: ALKALINE PHOSPHATASE 153 U/L (45-117); BILIRUBIN,TOTAL 0.2 mg/dL (0.2-1.0); TOTAL PROTEIN 7.4 g/dL (6.4-8.2)
[2020-10-23] MEDS: INSULIN LISPRO 100 UNITS/ML, PEN SQ-INSULIN SCH ×4 (07:00→21:00)
[2020-10-23 07:56] VITALS: BP 114/75
[2020-10-23] MEDS: ONDANSETRON 2MG/ML, 2ML IVPush PRN (08:53)
[2020-10-23] MEDS: GABAPENTIN 300 MG CAPSULE PO SCH ×3 (10:35→21:20)
[2020-10-23] MEDS: LACTOBACILLUS CHEW TABLET PO SCH ×3 (10:35→21:20)
[2020-10-23] MEDS: metFORMIN 500 MG TABLET PO SCH ×2 (10:36→21:20)
[2020-10-23] MEDS: CIPROFLOXACIN 500 MG TABLET PO SCH ×2 (10:36→21:21)
[2020-10-23] MEDS: metFORMIN 850 MG TABLET PO SCH (11:44)
[2020-10-23] MEDS: OXYcodone IR 5MG TABLET PO PRN ×2 (11:45→21:21)
[2020-10-23 14:30] VITALS: BP 108/76
[2020-10-23] MEDS: ONDANSETRON ODT 4 MG PO PRN (14:44)
[2020-10-23] MEDS: ENOXAPARIN 40 MG/0.4 ML SQ SCH (16:37)
[2020-10-23] MEDS: DAPTOMYCIN 400 MG in SODIUM CHLORIDE 0.9% 100 ML IVPB SCH (17:28)
[2020-10-23 19:13] VITALS: BP 110/73
[2020-10-23] MEDS: SENNA/DOCUSATE TABLET PO SCH (21:21)
[2020-10-23] MEDS: CARVEDILOL 3.125 MG TABLET PO SCH (21:21)
[2020-10-24] MEDS: OMEPRAZOLE 20 MG CAPSULE.DR PO SCH ×2 (05:39→18:04)
[2020-10-24 06:59] LABS: CHLORIDE 103 mmol/L (98-107)
[2020-10-24 07:00] LABS: BASOPHILS % (AUTO) 1 % (0-1); EOSINOPHILS % (AUTO) 26 % (1-7); LYMPHOCYTES % (AUTO) 20 % (22-44); MD NO; MEAN CORPUSCULAR HEMOGLOBIN 30.2 pg (27.5-34.5); MEAN CORPUSCULAR HGB CONC 33.7 g/dL (33.2-36.2); MEAN PLATELET VOLUME 8.1 fL (7.4-10.4); MONOCYTES % (AUTO) 8 % (2-9); NEUTROPHILS % (AUTO) 45 % (42-75); PLATELET COUNT 244 x10^3/uL (130-400); RED BLOOD COUNT 3.58 x10^6/uL (4.38-5.82); RED CELL DISTRIBUTION WIDTH 15.7 % (9.4-14.8)
[2020-10-24 07:06] LABS: ALANINE AMINOTRANSFERASE 278 U/L (12-78); ALKALINE PHOSPHATASE 152 U/L (45-117); ANION GAP 7 mmol/L (5-15); BILIRUBIN,TOTAL 0.2 mg/dL (0.2-1.0); CALCIUM 9.6 mg/dL (8.5-10.1); CREATININE 1.16 mg/dL (0.7-1.3); TOTAL PROTEIN 7.6 g/dL (6.4-8.2)
[2020-10-24] MEDS: metFORMIN 500 MG TABLET PO SCH ×2 (08:22→21:25)
[2020-10-24] MEDS: LACTOBACILLUS CHEW TABLET PO SCH ×3 (08:22→21:25)
[2020-10-24] MEDS: GABAPENTIN 300 MG CAPSULE PO SCH ×3 (08:22→21:25)
[2020-10-24] MEDS: INSULIN LISPRO 100 UNITS/ML, PEN SQ-INSULIN SCH ×4 (08:22→21:00)
[2020-10-24] MEDS: ONDANSETRON ODT 4 MG PO PRN (08:27)
[2020-10-24] MEDS: OXYcodone IR 5MG TABLET PO PRN ×2 (08:27→21:25)
[2020-10-24 09:25] VITALS: BP 119/81
[2020-10-24] MEDS: metFORMIN 850 MG TABLET PO SCH (13:43)
[2020-10-24] MEDS: CIPROFLOXACIN 500 MG TABLET PO SCH ×2 (13:43→22:58)
[2020-10-24 14:06] VITALS: BP 132/67
[2020-10-24] MEDS: ENOXAPARIN 40 MG/0.4 ML SQ SCH (16:00)
[2020-10-24] MEDS: DAPTOMYCIN 400 MG in SODIUM CHLORIDE 0.9% 100 ML IVPB SCH (18:03)
[2020-10-24 18:51] VITALS: BP 110/71
[2020-10-24] MEDS: CARVEDILOL 3.125 MG TABLET PO SCH (21:26)
[2020-10-24] MEDS: SENNA/DOCUSATE TABLET PO SCH (21:27)
[2020-10-25 03:59] VITALS: BP 136/85
[2020-10-25] MEDS: OMEPRAZOLE 20 MG CAPSULE.DR PO SCH ×2 (04:51→17:05)
[2020-10-25 06:02] LABS: CHLORIDE 105 mmol/L (98-107)
[2020-10-25 06:10] LABS: ALANINE AMINOTRANSFERASE 256 U/L (12-78); ALBUMIN 2.8 g/dL (3.4-5.0); ALKALINE PHOSPHATASE 159 U/L (45-117); ANION GAP 4 mmol/L (5-15); BILIRUBIN,TOTAL 0.3 mg/dL (0.2-1.0); CALCIUM 9.3 mg/dL (8.5-10.1); CREATININE 1.25 mg/dL (0.7-1.3); TOTAL PROTEIN 7.4 g/dL (6.4-8.2)
[2020-10-25] MEDS: INSULIN LISPRO 100 UNITS/ML, PEN SQ-INSULIN SCH ×4 (07:40→21:47)
[2020-10-25 08:09] VITALS: BP 130/86
[2020-10-25] MEDS: CIPROFLOXACIN 500 MG TABLET PO SCH ×2 (10:29→22:52)
[2020-10-25] MEDS: ONDANSETRON 2MG/ML, 2ML IVPush PRN (10:29)
[2020-10-25] MEDS: LACTOBACILLUS CHEW TABLET PO SCH ×3 (10:29→21:46)
[2020-10-25] MEDS: GABAPENTIN 300 MG CAPSULE PO SCH ×3 (10:29→21:46)
[2020-10-25] MEDS: metFORMIN 500 MG TABLET PO SCH ×2 (10:29→21:47)
[2020-10-25] MEDS: metFORMIN 850 MG TABLET PO SCH (11:51)
[2020-10-25 15:26] VITALS: BP 114/80
[2020-10-25] MEDS: ENOXAPARIN 40 MG/0.4 ML SQ SCH (16:30)
[2020-10-25] MEDS ORDERED: metFORMIN 500 MG TABLET PO SCH (17:00)
[2020-10-25] MEDS: DAPTOMYCIN 400 MG in SODIUM CHLORIDE 0.9% 100 ML IVPB SCH (17:05)
[2020-10-25] MEDS: OXYcodone IR 5MG TABLET PO PRN (19:15)
[2020-10-25 19:53] VITALS: BP 106/71
[2020-10-25] MEDS: SENNA/DOCUSATE TABLET PO SCH (21:46)
[2020-10-25] MEDS: CARVEDILOL 3.125 MG TABLET PO SCH (21:47)
[2020-10-26 01:20] VITALS: BP 127/79
[2020-10-26] MEDS: OMEPRAZOLE 20 MG CAPSULE.DR PO SCH ×2 (04:58→16:54)
[2020-10-26] MEDS: ONDANSETRON ODT 4 MG PO PRN (05:02)
[2020-10-26 05:32] LABS: ALBUMIN 2.9 g/dL (3.4-5.0); ANION GAP 7 mmol/L (5-15); CALCIUM 9.4 mg/dL (8.5-10.1); CHLORIDE 103 mmol/L (98-107)
[2020-10-26 05:37] LABS: ALANINE AMINOTRANSFERASE 253 U/L (12-78); ALKALINE PHOSPHATASE 163 U/L (45-117); BILIRUBIN,TOTAL 0.2 mg/dL (0.2-1.0); CREATININE 1.32 mg/dL (0.7-1.3); TOTAL PROTEIN 7.3 g/dL (6.4-8.2)
[2020-10-26] MEDS: INSULIN LISPRO 100 UNITS/ML, PEN SQ-INSULIN SCH ×4 (07:23→21:04)
[2020-10-26] MEDS: GABAPENTIN 300 MG CAPSULE PO SCH ×3 (08:56→20:55)
[2020-10-26] MEDS: CIPROFLOXACIN 500 MG TABLET PO SCH (08:56)
[2020-10-26] MEDS: metFORMIN 500 MG TABLET PO SCH ×2 (08:57→20:55)
[2020-10-26] MEDS: LACTOBACILLUS CHEW TABLET PO SCH ×3 (08:57→20:55)
[2020-10-26] MEDS: ERAVACYCLINE IV SCH (12:24)
[2020-10-26] MEDS: SODIUM CHLORIDE 0.9% IV SCH (12:24)
[2020-10-26] MEDS: metFORMIN 850 MG TABLET PO SCH (12:25)
[2020-10-26] MEDS: ENOXAPARIN 40 MG/0.4 ML SQ SCH (16:53)
[2020-10-26] MEDS: OXYcodone IR 5MG TABLET PO PRN ×2 (16:54→20:58)
[2020-10-26 17:54] VITALS: BP 118/76
[2020-10-26 18:47] VITALS: BP 126/78
[2020-10-26] MEDS: CARVEDILOL 3.125 MG TABLET PO SCH (20:55)
[2020-10-26] MEDS: SENNA/DOCUSATE TABLET PO SCH (20:55)
[2020-10-27 00:44] VITALS: BP 120/75
[2020-10-27] MEDS: ERAVACYCLINE IV SCH ×2 (00:46→12:00)
[2020-10-27] MEDS: SODIUM CHLORIDE 0.9% IV SCH ×2 (00:46→12:00)
[2020-10-27] MEDS: OMEPRAZOLE 20 MG CAPSULE.DR PO SCH ×2 (05:53→16:37)
[2020-10-27] MEDS: INSULIN LISPRO 100 UNITS/ML, PEN SQ-INSULIN SCH ×4 (07:23→21:18)
[2020-10-27] MEDS: LACTOBACILLUS CHEW TABLET PO SCH ×3 (07:28→21:08)
[2020-10-27] MEDS: GABAPENTIN 300 MG CAPSULE PO SCH ×3 (07:28→21:08)
[2020-10-27] MEDS: ONDANSETRON 2MG/ML, 2ML IVPush PRN (07:28)
[2020-10-27] MEDS: metFORMIN 500 MG TABLET PO SCH ×2 (07:29→21:08)
[2020-10-27 08:11] VITALS: BP 131/82
[2020-10-27] MEDS: POLYETHYLENE GLYCOL 17 GM PACKET PO PRN (11:30)
[2020-10-27] MEDS: metFORMIN 850 MG TABLET PO SCH (11:31)
[2020-10-27 12:37] LABS: ALBUMIN 3.1 g/dL (3.4-5.0); ANION GAP 3 mmol/L (5-15); CALCIUM 9.3 mg/dL (8.5-10.1); CHLORIDE 102 mmol/L (98-107)
[2020-10-27 12:40] VITALS: BP 124/84
[2020-10-27 12:41] LABS: ALANINE AMINOTRANSFERASE 214 U/L (12-78); ALKALINE PHOSPHATASE 162 U/L (45-117); BILIRUBIN,TOTAL 0.3 mg/dL (0.2-1.0); CREATININE 1.29 mg/dL (0.7-1.3); TOTAL PROTEIN 7.9 g/dL (6.4-8.2)
[2020-10-27] MEDS: DAPTOMYCIN 420 MG in SODIUM CHLORIDE 0.9% 100 ML IVPB SCH (13:08)
[2020-10-27] MEDS: CIPROFLOXACIN 500 MG TABLET PO SCH (13:08)
[2020-10-27] MEDS: ENOXAPARIN 40 MG/0.4 ML SQ SCH (16:37)
[2020-10-27 19:38] VITALS: BP 136/85
[2020-10-27] MEDS: ACETAMINOPHEN 325 MG TABLET PO PRN (21:08)
[2020-10-27] MEDS: CARVEDILOL 3.125 MG TABLET PO SCH (21:08)
[2020-10-27] MEDS: SENNA/DOCUSATE TABLET PO SCH (21:08)
[2020-10-28] MEDS: CIPROFLOXACIN 500 MG TABLET PO SCH ×2 (01:08→10:56)
[2020-10-28 02:21] VITALS: BP 138/77
[2020-10-28] MEDS: OMEPRAZOLE 20 MG CAPSULE.DR PO SCH (05:40)
[2020-10-28 06:28] LABS: ALANINE AMINOTRANSFERASE 193 U/L (12-78); ALBUMIN 2.9 g/dL (3.4-5.0); ANION GAP 6 mmol/L (5-15); CALCIUM 9.1 mg/dL (8.5-10.1); CHLORIDE 105 mmol/L (98-107)
[2020-10-28 06:31] LABS: ALKALINE PHOSPHATASE 143 U/L (45-117); BILIRUBIN,TOTAL 0.3 mg/dL (0.2-1.0); CREATININE 1.13 mg/dL (0.7-1.3); TOTAL PROTEIN 7.4 g/dL (6.4-8.2)
[2020-10-28] MEDS ORDERED: PANTOPRAZOLE 40 MG IV IVPush SCH (07:00)
[2020-10-28] MEDS: INSULIN LISPRO 100 UNITS/ML, PEN SQ-INSULIN SCH ×4 (07:00→21:30)
[2020-10-28 07:08] VITALS: BP 125/82
[2020-10-28] MEDS: SUCRALFATE 1 GM/10 ML UDC PO SCH ×4 (08:15→21:31)
[2020-10-28] MEDS: metFORMIN 500 MG TABLET PO SCH ×2 (08:15→21:32)
[2020-10-28] MEDS: LACTOBACILLUS CHEW TABLET PO SCH ×3 (08:15→21:31)
[2020-10-28] MEDS: GABAPENTIN 300 MG CAPSULE PO SCH ×3 (08:15→21:32)
[2020-10-28] MEDS: metFORMIN 850 MG TABLET PO SCH (10:55)
[2020-10-28] MEDS: POLYETHYLENE GLYCOL 17 GM PACKET PO PRN (10:56)
[2020-10-28] MEDS: DAPTOMYCIN 420 MG in SODIUM CHLORIDE 0.9% 100 ML IVPB SCH (12:56)
[2020-10-28 14:21] VITALS: BP 127/66
[2020-10-28] MEDS: OXYcodone IR 5MG TABLET PO PRN (15:24)
[2020-10-28] MEDS: ENOXAPARIN 40 MG/0.4 ML SQ SCH (16:00)
[2020-10-28 19:55] VITALS: BP 116/61
[2020-10-28] MEDS: SENNA/DOCUSATE TABLET PO SCH (21:31)
[2020-10-28] MEDS: CARVEDILOL 3.125 MG TABLET PO SCH (21:32)
[2020-10-28] MEDS: PANTOPRAZOLE 40MG TABLET PO SCH (21:32)
[2020-10-28] MEDS: ACETAMINOPHEN 325 MG TABLET PO PRN (21:42)
[2020-10-29 00:48] VITALS: BP 133/78
[2020-10-29] MEDS: CIPROFLOXACIN 500 MG TABLET PO SCH (00:56)
[2020-10-29 04:44] LABS: BASOPHILS % (AUTO) 1 % (0-1); EOSINOPHILS % (AUTO) 25 % (1-7); LYMPHOCYTES % (AUTO) 25 % (22-44); MEAN CORPUSCULAR HEMOGLOBIN 30.2 pg (27.5-34.5); MEAN PLATELET VOLUME 7.7 fL (7.4-10.4); MONOCYTES % (AUTO) 8 % (2-9); NEUTROPHILS % (AUTO) 42 % (42-75); PLATELET COUNT 284 x10^3/uL (130-400); RED BLOOD COUNT 3.55 x10^6/uL (4.38-5.82); RED CELL DISTRIBUTION WIDTH 16.4 % (9.4-14.8)
[2020-10-29 04:50] LABS: MD NO
[2020-10-29 04:55] LABS: ALBUMIN 2.9 g/dL (3.4-5.0); ANION GAP 5 mmol/L (5-15); CALCIUM 9.3 mg/dL (8.5-10.1); CHLORIDE 105 mmol/L (98-107)
[2020-10-29 04:59] LABS: ALANINE AMINOTRANSFERASE 229 U/L (12-78); ALKALINE PHOSPHATASE 166 U/L (45-117); BILIRUBIN,TOTAL 0.3 mg/dL (0.2-1.0); C-REACTIVE PROTEIN, QUANT 0.23 mg/dL (0.02-0.49); CREATINE KINASE, TOTAL 29 U/L (39-308); CREATININE 1.18 mg/dL (0.7-1.3); TOTAL PROTEIN 7.3 g/dL (6.4-8.2)
[2020-10-29] MEDS: SUCRALFATE 1 GM/10 ML UDC PO SCH ×3 (06:38→16:17)
[2020-10-29] MEDS: ONDANSETRON ODT 4 MG PO PRN (06:43)
[2020-10-29] MEDS: INSULIN LISPRO 100 UNITS/ML, PEN SQ-INSULIN SCH ×3 (07:00→16:00)
[2020-10-29 07:56] VITALS: BP 150/87
[2020-10-29] MEDS: LACTOBACILLUS CHEW TABLET PO SCH ×2 (07:56→16:17)
[2020-10-29] MEDS: GABAPENTIN 300 MG CAPSULE PO SCH ×2 (07:56→16:17)
[2020-10-29] MEDS: metFORMIN 500 MG TABLET PO SCH (07:57)
[2020-10-29] MEDS: PANTOPRAZOLE 40MG TABLET PO SCH (07:57)
[2020-10-29] MEDS: OXYcodone IR 5MG TABLET PO PRN (11:29)
[2020-10-29] MEDS: metFORMIN 850 MG TABLET PO SCH (11:56)
[2020-10-29] MEDS: DAPTOMYCIN 420 MG in SODIUM CHLORIDE 0.9% 100 ML IVPB SCH (11:56)
[2020-10-29] MEDS ORDERED: ONDA4TAB13 PO (12:38)
[2020-10-29] MEDS ORDERED: ACID1TAB7 PO (12:38)
[2020-10-29] MEDS ORDERED: Sulfameth./Trimethoprim Ds PO (12:38)
[2020-10-29 12:41] VITALS: BP 130/82
[2020-10-29] MEDS ORDERED: SULF1TAB24 PO (12:44)
[2020-10-29] MEDS ORDERED: SULFAMETH./TRIMETHOPRIM DS 800MG/160MG TABLET PO SCH (16:00)
[2020-10-29] MEDS: ENOXAPARIN 40 MG/0.4 ML SQ SCH (16:18)
== END 2020-10-29 16:23 | disposition home or self-care (01) | DRG 853 ==
LOC: ED 03:36 → EDIP 05:00 → 4NE 05:45 → 3N 09-12 17:57
PROVIDERS: ADMIT Family Medicine; ATTEND Family Medicine
PROC: 0Y6T0Z0 Detachment at Right 3rd Toe, Complete, Open Approach (ICD-10-PCS; 2020-08-21)
PROC: 0Y6R0Z0 Detachment at Right 2nd Toe, Complete, Open Approach (ICD-10-PCS; principal; 2020-08-21 17:15)
PROC: 0YBM0ZZ Excision of Right Foot, Open Approach (ICD-10-PCS; 2020-08-27)
PROC: 02HV33Z Insertion of Infusion Device into Superior Vena Cava, Percutaneous Approach (ICD-10-PCS; 2020-08-30)
PROC: B548ZZA Ultrasonography of Superior Vena Cava, Guidance (ICD-10-PCS; 2020-08-30)
PROC: 0YQM0ZZ Repair Right Foot, Open Approach (ICD-10-PCS; 2020-08-31)
PROC: 0Y6M0Z9 Detachment at Right Foot, Partial 1st Ray, Open Approach (ICD-10-PCS; 2020-09-17)
PROC: 0Y6M0ZB Detachment at Right Foot, Partial 2nd Ray, Open Approach (ICD-10-PCS; 2020-09-17)
PROC: 0Y6M0ZC Detachment at Right Foot, Partial 3rd Ray, Open Approach (ICD-10-PCS; 2020-09-17)
PROC: 0Y6M0ZD Detachment at Right Foot, Partial 4th Ray, Open Approach (ICD-10-PCS; 2020-09-17)
PROC: 0Y6M0ZF Detachment at Right Foot, Partial 5th Ray, Open Approach (ICD-10-PCS; 2020-09-17)
DX: A41.9 Sepsis, unspecified organism (principal); A48.0 Gas gangrene; E11.52 Type 2 diabetes mellitus with diabetic peripheral angiopathy with gangrene; E46 Unspecified protein-calorie malnutrition; E87.1 Hypo-osmolality and hyponatremia; L03.115 Cellulitis of right lower limb; M86.171 Other acute osteomyelitis, right ankle and foot; N17.9 Acute kidney failure, unspecified; L02.611 Cutaneous abscess of right foot; Z20.828 Contact with and (suspected) exposure to other viral communicable diseases; B95.2 Enterococcus as the cause of diseases classified elsewhere; B95.62 Methicillin resistant Staphylococcus aureus infection as the cause of diseases classified elsewhere; D50.9 Iron deficiency anemia, unspecified; D63.8 Anemia in other chronic diseases classified elsewhere; E11.621 Type 2 diabetes mellitus with foot ulcer; E11.65 Type 2 diabetes mellitus with hyperglycemia; E11.69 Type 2 diabetes mellitus with other specified complication; E78.5 Hyperlipidemia, unspecified; I10 Essential (primary) hypertension; K21.9 Gastro-esophageal reflux disease without esophagitis; E11.628 Type 2 diabetes mellitus with other skin complications; N14.1 Nephropathy induced by other drugs, medicaments and biological substances; T36.8X5A Adverse effect of other systemic antibiotics, initial encounter; H57.89 Other specified disorders of eye and adnexa; K59.00 Constipation, unspecified; K76.0 Fatty (change of) liver, not elsewhere classified; D47.3 Essential (hemorrhagic) thrombocythemia; L97.519 Non-pressure chronic ulcer of other part of right foot with unspecified severity; Z79.84 Long term (current) use of oral hypoglycemic drugs; Z87.11 Personal history of peptic ulcer disease; Z87.891 Personal history of nicotine dependence; Y92.89 Other specified places as the place of occurrence of the external cause; Z68.29 Body mass index [BMI] 29.0-29.9, adult
CPT/HCPCS: 36415; 73630; 74018; 84145; 96374; 99291; J3490; Q0169; 36573; 71045; 76700; 78227; 80048; 80053; 80202; 81001; 82550; 82565; 82728; 82962; 83036; 83540; 83550; 83605; 83735; 84100; 84443; 84466; 85025; 85651; 86140; 87015; 87040; 87070; 87075; 87077; 87102; 87116; 87186; 87205; 87206; 87635; G0378; J0295; J0690; J0878; J1100; J1170; J1335; J1650; J1885; J2250; J2405; J2543; J2550; J2704; J2997; J3010; J3370; Q0162; A9537; A9575; C1751; C9113; C9898; J1815; J2270; J2765; J7030; J7050